=== PATIENT | female | born 1975 | race Caucasian/White ===

== ENCOUNTER 2025-07-18 06:45 | Observation (INO) | payer OTHER, SELFPAY ==
[2025-07-18] VITALS (7 sets, daily range): BP systolic 101–159; BP diastolic 59–105; PULSE 58–91; RESP 15–19; TEMP 35.9–36.7; O2SAT 99–100; BMI 24.3
--- NOTE | ~2025-07-18 | US_ITS ---
ULTRASOUND ABDOMEN LIMITED (RIGHT UPPER QUADRANT) Clinical History: ruq pain Comparison: None Technique: Right upper quadrant sonography Findings: Liver: Normal size. Normal echotexture. No intrahepatic biliary ductal dilatation. Normal hepatopedal flow main portal vein. Common Duct: Normal caliber. 3 mm. Gallbladder: Stones. No wall thickening. No pericholecystic fluid. Pancreas: Unremarkable. Right kidney: 10 mm simple cyst. Retrohepatic IVC: Unremarkable. IMPRESSION: 1. Gallstones. No evidence of cholecystitis. If clinical ambiguity, recommend HIDA scan. Reviewed, dictated and finalized at location [facility]
[2025-07-18 07:29] LABS: Hematocrit 35.2 % (37.0-47.0); Hemoglobin 11.4 g/dL (12.0-15.0); Immature Granulocyte Percent A 0.4 % (0-0.5); Lymphocytes Absolute Auto 1.63 K/mm3 (0.9-3.2); Mean Corpuscular HGB Conc 32.4 g/dl (32-36); Mean Corpuscular Hemoglobin 26.8 pg (26-34); Mean Corpuscular Volume 82.8 fl (80-100); Nucleated Red Blood Cells Absolute Auto 0.000 K/mm3 (0.0-0.012); Nucleated Red Blood Cells Perc 0.0 % (0.0-0.2); Platelet Count Result 289 k/mm3 (150-375); Red Blood Count 4.25 M/mm3 (4.2-5.4); White Blood Count 5.6 K/mm3 (4.5-10.0)
--- OUTSIDE RECORDS SUMMARY | 2025-07-18 07:31 | XMS_ITS | Clinical Summary ---
Author Organization [facility] Address [address] [place] [address] Care Team Providers Care Commercial Litigation Attorney Name Role Phone Shoshana Parker ROD AND TUBE STRAIGHTENER-CLIENT RELATIONS ASSOCIATE Primary Care Provider [phone] Source Comments [facility],non-owned Affiliates and Associated Physician Practices is amultiple site organization consisting of ambulatory clinics and hospital sitesin [place], [place], [place] and [place]. This disclosure is being madepursuant to the Care Everywhere program and may not contain all information available regarding this patient. Last updated 18.[facility] Allergies No known active allergies Medications * Be aware that medications may not be up to date on this document. Alwaysverify current medications with the patient. sucralfate (CARAFATE) 1 GM tablet Take 1 g by mouth 4 times daily - before meals & nightly Active pantoprazole EC (PROTONIX) 40 MG tablet Take 40 mg by mouth once daily Active hyoscyamine (LEVSIN) 0.125 MG tablet Take 1 tablet by mouth every 4 hours as needed for Spasms (abdominal pain) 30 tablet 10/08/2017 Active Active Problems Problem Noted Date Diagnosed Date Attention deficit hyperactivity disorder (ADHD) 03/31/2010 Screening for condition 10/16/2008 Overview (05/06/2015): Adult Abstraction Problem List Screening Pap: been awhile Family History Medical History Relation Name Comments Hypercholesterolemia Father Hypertension Father Hypercholesterolemia Mother Hypertension Mother Cancer - Breast Neg Hx Cancer - Ovarian Neg Hx Diabetes Neg Hx Relation Name Status Comments Brother 1 Alive Brother 2 Alive Brother 3 Alive Father Alive Mother Alive Sister 1 Alive Sister 2 Alive Sister 3 Alive Social History Tobacco Use Types Packs/Day Years Used Date Smoking Tobacco: Never Alcohol Use Standard Drinks/Week Comments Yes 0 (1 standard drink = 0.6 oz pur e alcohol) occ Comments No Sex and Gender Information Value Date Recorded Sex Assigned at Not on file Legal Sex Female 7:19 AM WASTEWATER ANALYST Gender Identity Not on file Sexual Orientation Not on file Occupation Industry Job Start Date Job End 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[employer] Not on file Not on file No t on file Last Filed Vital Signs Vital Sign Reading Time Taken Comments Blood Pressure 142/72 10/08/2017 2:57 PM WASTEWATER ANALYST Pulse 76 10/08/2017 11:55 AM WASTEWATER ANALYST Temperature 36.8 C (98.2 F) 10/08/2017 11:55 AM WASTEWATER ANALYST Respiratory Rate 16 10/08/2017 11:55 AM WASTEWATER ANALYST Oxygen Saturation 100% 10/08/2017 2:57 PM WASTEWATER ANALYST Inhaled Oxygen Concentration - - Weight 76.2 kg (168 lb) 11/30/2023 8:17 AM CDT Height 177.8 cm (5' 10) 11/30/2023 8:17 AM CDT Body Mass Index 24.11 11/30/2023 8:17 AM CDT Plan of Treatment Health Maintenance Due Date Last Done Comments COLOGUARD (AGES 45-75) - COLON CA SCREENING 1976 COLON MONITORING 1976 COLONOSCOPY - COLON CA SCREENING 1976 CT COLONOGRAPHY - COLON CA SCREENING 1976 Colorectal Cancer Screening 1976 FIT - COLON CA SCREENING 1976 FLEX SIG - COLON CA SCREENING 1976 HIV SCREENING 1991 HEPATITIS C SCREENING 09/10/1994 DTAP/TDAP/TD VACCINES (1 - Tdap) 1995 HEPATITIS B VACCINE (1 of 3 - 19+ 3-dose series) 1995 PAP with HPV 2006 Cervical Cancer Screening 07/17/2012 PAP SMEAR 07/17/2012 07/17/2009 LIPID TESTING 10/29/2013 10/29/2008 DEPRESSION SCREENING 08/06/2024 COVID-19 VACCINE (3 - season) 2025 10/07/2020, 09/16/2020 INFLUENZA VACCINE (#1) 2025 , 06/19/2016, 06/19/2015 MAMMOGRAM 11/29/2025 11/30/2023, 12/04, 12/15/2021, Additional history exists ZOSTER VACCINE (1 of 2) 2026 HIB VACCINE Aged Out No longer eligi ble based on patient's age to complete this topic HPV VACCINE Aged Out No longer eligi ble based on patient's age to complete this topic MENINGOCOCCAL (Group B) VACCINE SHARED DECISION-MAKING Aged Out No longer eligible based on patient's age to complete this topic MENINGOCOCCAL GROUPS A/C/Y/W VACCINE Aged Out No longer eligible based on patient's age to complete this topic PNEUMOCOCCAL VACCINE Aged Out No long er eligible based on patient's age to complete this topic Procedures Procedure Name Priority Date/Time Associated Diagnosis Comments MAMMO BILAT SCREENING W CALEB Routine 11/30/2023 8:31 AM CDT Encounter for screening mammogram for malignant neoplasm of breast LIPID PROFILE Routine 10/29/2008 10:21 AM CDT Lymphadenopathy from Last 3 Months or Most Recently Relevant to Health Maintenance Results * MAMMO BILAT SCREENING W CALEB (11/30/2023 8:31 AM CDT) Anatomical Region Laterality Modality Breast Bilateral Mammography 11/30/2023 11:5 0 AM CDT Impressions 11/30/2023 11:54 AM CDT : No mammographic evidence of malignancy in either breast. ASSESSMENT: BIRADS Category 2: Benign finding(s). RECOMMENDATION: Bilateral screening mammogram in one year. Thank you for allowing us to participate in the care of your patient. [facility] utilizes [employer] as a reminder system to notify patients of their next recommended mammogram. > Interpreting Provider: Radha Vieira MD on 11/30/2023 11:54 AM Narrative 11/30/2023 11:54 AM CDT EXAMINATION: Digital screening mammogram. Low-dose full-field digital breast tomosynthesis examination was performed with synthetic 2D images. Computer assisted detection was utilized. DATE: 11/30/2023 8:31 AM PRIOR: 2021 outside images BREAST PARENCHYMAL DENSITY: The breasts are heterogeneously dense, which may obscure small masses. FINDINGS: No suspicious masses, areas of architectural distortion or microcalcifications are evident on synthetic 2D mammogram or tomosynthesis images. Patient is status post left breast ultrasound-guided biopsy with benign pathology in 2021. Shoshana Parker ROD AND TUBE STRAIGHTENER-CLIENT RELATIONS ASSOCIATE MAMMO ORDERABLES Final Res ult * LIPID PROFILE (10/29/2008 10:21 AM CDT) Cholesterol 144 100 - 199 mg/dL [facility] ACCOUNT BILL Triglycerides 57 0 - 149 mg/dL [facility] ACCOUNT BILL HDL Cholesterol 64 >39 mg/dL [facility] ACCOUNT BILL Comment: According to ATP-III Guidelines, HDL-C >59 mg/dL is considered a negative risk factor for CHD. VLDL Calculated 11 5 - 40 mg/dL [facility] ACCOUNT BILL LDL Calculated 69 0 - 99 mg/dL [facility] ACCOUNT BILL BLOOD SPECIMEN / Unknown 10/29/2008 10:21 AM CDT 10/29/2008 5:00 PM CDT Narrative Resulting Agency Comment [facility] [address] [id number] Richard Barone MD LAB - CHEMISTRY ORDERABLES Final Result [facility] ACCOUNT BILL [address] [place] [address] from Last 3 Months or Most Recently Relevant to Health Maintenance Insurance [facility] * Guarantor: JYOTSNA MARTIN Account Type Relation to Patient Date of Phone Billing Address Personal/Family 1975 [address] [address] Care Teams Commercial Litigation Attorney Relationship Specialty Start Date End Date Shoshana Parker APRN-CLARA PCP - General Nurse Practitioner Family 11/30/23
--- OUTSIDE RECORDS SUMMARY | 2025-07-18 07:31 | XMS_ITS | Clinical Summary ---
Author Organization [facility] Address [address] [place] [address] Care Team Providers Care Manager Cash Name Role Phone No, Pcp PENSIONHOLDER INFORMATION CLERK Primary Care Provider Unavailabl e Allergies No known active allergies Medications doxycycline (VIBRAMYCIN) 100 MG capsule 100 mg 2 (two) times a day. Active Immunizations Immunization Administration Dates Next Due Afluria TIV Prefilled Syringe (9+ Years) 015 Fluarix Quadrivalent Prefilled Syringe 6 Social History Tobacco Use Types Packs/Day Years Used Date Smoking Tobacco: Never Comments Unknown Sex and Gender Information Value Date Recorded Sex Assigned at Not on file Legal Sex Female 1:44 PM EST Gender Identity Not on file Sexual Orientation Not on file Last Filed Vital Signs Vital Sign Reading Time Taken Comments Blood Pressure 110/68 06/19/2016 12:18 PM CLIENT RETENTION SPECIALIST Pulse 67 06/19/2016 12:18 PM CLIENT RETENTION SPECIALIST Temperature 36.6 C (97.9 F) 06/19/2016 12:18 PM CLIENT RETENTION SPECIALIST Respiratory Rate 18 06/19/2016 12:18 PM CLIENT RETENTION SPECIALIST Oxygen Saturation 98% 06/19/2016 12:18 PM CLIENT RETENTION SPECIALIST Inhaled Oxygen Concentration - - Weight 73.5 kg (162 lb) 06/19/2016 12:18 PM CLIENT RETENTION SPECIALIST Height 175.9 cm (5' 9.25) 06/19/2016 12:[address] Body Mass Index 23.75 06/19/2016 12:18 PM CLIENT RETENTION SPECIALIST Plan of Treatment Not on file Medical Devices Not on file Care Teams Manager Cash Relationship Specialty Start Date End Date No, Pcp, PENSIONHOLDER INFORMATION CLERK N/A Do not use PCP - General Family Medicine 07/22/20
--- OUTSIDE RECORDS SUMMARY | 2025-07-18 07:31 | XMS_ITS | Encounter Summary ---
Author Organization [facility] Address [address] [place] [address] Care Team Providers Care Press Box Custodian Name Role Phone Glory Mcgovern MD Primary Care Provider [phone] Reason for Visit * Reason Comments Medication Refill Encounter Details Date Type Department Care Team (Late Contact Info) Description 08/14/2019 Refill [facility] [place] [address] [place] [address] Elba Ann, [facility] [address] [place] [address] Elevated BP without diagnosis of hypertension Social History Tobacco Use Types Packs/Day Years Used Date Smoking Tobacco: Never Smokeless Tobacco: Never Alcohol Use Standard Drinks/Week Comments Yes 5 (1 standard drink = 0.6 oz pur e alcohol) occasionally Comments No Sex and Gender Information Value Date Recorded Sex Assigned at Not on file Legal Sex Female 3:51 AM SPRINKLER REPAIR TECHNICIAN Gender Identity Not on file Sexual Orientation Not on file documented as of this encounter Miscellaneous Notes * Telephone Encounter - Elmer Cha - 08/14/2019 9:21 AM CST Called patient and set appointment for her on 08/25/2019 at 8:00 am Refilled her metoprolol for onemonth only. NKLER REPAIR TECHNICIAN documented in this encounter Plan of Treatment Upcoming Encounters Date Type Department Care Team (Late st Contact Info) Description 03/12/2026 11:10 AM CDT Office Visit [facility] [address] [place] [address] [place] [address] [place] [address] documented as of this encounter Visit Diagnoses Diagnosis Elevated BP without diagnosis of hypertension documented in this encounter Care Teams Press Box Custodian Relationship Specialty [place] [address] [place] [address] PCP - General Internal Medicine 12/22/21 documented as of this encounter
--- OUTSIDE RECORDS SUMMARY | 2025-07-18 07:31 | XMS_ITS | Clinical Summary ---
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 Use the 2nd tablet as needed for nausea and vomiting. 2 tablet 5 Active Additional Information Patient not taking.Reported on 07/06/2025 propranoloL (INDERAL) 10 mg tablet TAKE 1 TABLET(10 MG) BY MOUTH TWICE DAILY 180 tablet 1 5 Active polyethylene glycol (GoLYTELY) 236-22.74-6.74 -5.86 gram solution Take 4,000 mL by mouth once for 1 dose 4000 mL 5 06/18/20 25 Active Problems Problem Noted Date Diagnosed Date Gastroesophageal reflux disease 07/07/2025 Colicky right upper quadrant pain 07/07/2025 Encounter for screening colonoscopy 06/18/2025 Palpitations 06/10/2025 Assessment & Plan (06/10/2025 9:57 AM STOVE TENDER): Controlled on propranolol Mild intermittent asthma without complication Assessment & Plan (06/10/2025 9:57 AM STOVE TENDER): Screening for colon cancer 11/04/2024 Cervicalgia 04/24/2024 Assessment & Plan (04/24/2024 10:08 AM CDT): This is a new problem assessed today; X-ray of cervical spine. Depending on results, refer to physical therapy and/or pain management, Rx for Celebrex p.r.n. Left hip pain 04/24/2024 Assessment & Plan (04/24/2024 10:08 AM CDT): This is a new problem; Rx Celebrex p.r.n., x-ray of left hip. Referral to orthopedics Annual physical exam 04/24/2024 Assessment & Plan (06/10/2025 9:57 AM STOVE TENDER): Orders: CBC with auto differential; Future Comprehensive metabolic panel; Future Lipid panel; Future Thyroid Function [place]; Future Assessment & Plan (04/24/2024 10:07 AM CDT): -Recommended: Healthy diet. Avoiding junk food/fast food. -30 minutes of exercise most days of the week. Increase to 45 minutes for weight loss. Health Maintenance reviewed - recommended pneumococcal vaccine, mammogram was done externally, referral to GI for colonoscopy. -Influenza vaccine every year Recommend: - Topic Date Due Pneumococcal vaccine <65 (1 of 2 - PCV) Never done DTaP/Tdap/Td Vaccine (1 - Tdap) Never done -F/u in 1 year for Annual PE or sooner if needed Gastroesophageal reflux disease without esophagi tis 10/23/2023 Assessment & Plan (07/06/2025 1:34 PM STOVE TENDER): History of. Pain did improve a little when taking some kind of otc homeopathic gerd treatment made with charcoal. Advised she can take pepcid ac to trial if she has pain again. She is having a colonoscopy on the . She is asking about an EDG at same time. Will inquire to GI. Orders: Ambulatory referral to Gastroenterology; Future Assessment & Plan (10/23/2023 9:00 AM CDT): May continue omeprazole OTC. May also try Pepcid as an alternative. If symptoms continue or escalate again we may consider ultrasound of gallbladder HTN (hypertension), benign 02/14/2021 Overview (12/26/2021): Last Assessment & Plan: Stable and Controlled. Current medication regimen affective, continue same. Monitor routine blood work. Assessment & Plan (06/10/2025 9:57 AM STOVE TENDER): Controlled on propranolol and losartan 25mg daily Orders: CBC with auto differential; Future Comprehensive metabolic panel; Future Lipid panel; Future Thyroid Function [place]; Future Assessment & Plan (04/24/2024 10:05 AM CDT): Stable/ Improved. Blood pressure is adequately controlled on Losartan and propranolol . We will not make any medication changes today. Will have her follow-up in 6 months for continued monitoring and management Assessment & Plan (10/23/2023 8:59 AM CDT): Stable/ Improved. Blood pressure is adequately controlled on current medication. Continue losartan propranolol. We will not make any medication changes today. Will have her follow-up in 6 months with labs for continued monitoring and management Attention deficit hyperactivity disorder (ADHD) 03/31/2010 Resolved Problems Problem Noted Date Diagnosed Date Resolved Date Shoulder injury related to v accine administration (SIRVA) 05/12/2021 10/23/2023 History of COVID-19 02/14/2021 03/22/20 Overview (12/26/2021): June 2020 Last Assessment & Plan: Improving. Will monitor symptoms. Encounters Date Type Department Care Team Description 07/14/2025 11:45 AM STOVE TENDER - 07/14/2025 11:59 PM STOVE TENDER Hospital Encounter [facility] - Imaging [address] [place] [address] Colicky right upper quadrant pain Discharge Disposition: Discharge to home or self care 07/14/2025 Results Follow-Up [facility] Primary Care at [address] [phone] Shoshana Parker NP [facility] 07/07/2025 Orders Only [facility] Gastroenterology at [address] [place] [phone] Richy Stevenson MD Gastroesophageal reflux disease, unspecified whether esophagitis present (Primary Dx); Colicky right upper quadrant pain 07/07/2025 Orders Only [facility] Gastroenterology at [address] [place] [phone] Richy Stevenson MD 07/06/2025 12:30 PM STOVE TENDER Office Visit [facility] Primary Care at [address] [phone] Shoshana Parker NP Gastroesophageal reflux disease without esophagitis (Primary Dx); Colicky right upper quadrant pain 07/06/2025 Nurse Triage [facility] Primary Care at [address] [phone] Shoshana Parker NP 06/18/2025 Orders Only [facility] Gastroenterology at [address] [place] [phone] Richy Stevenson MD Nausea and vomiting, unspecified vomiting type (Primary Dx); Encounter for screening colonoscopy 06/17/2025 Telephone [facility] Minimally Invasive Surgery [address] [place] [address] Health 7th Floor [address] [place] [address] Rupa Woodson, Rizwan New Referral 06/11/2025 Results Follow-Up [facility] Sleep Medicine at [address] [place] [address] Shoshana Parker NP CBC with auto differential, Comprehensive metabolic panel, Lipid panel, Additional followed-up results: 7 06/10/2025 9:15 AM STOVE TENDER Lab [address] [address] Annual physical exam; HTN (hypertension), benign; Lipid screening; Need for hepatitis B screening test; Need for hepatitis C screening test 06/10/2025 8:30 AM STOVE TENDER Office Visit [facility] Primary Care at [address] [phone] Shoshana Parker NP Encounter for screening colonoscopy (Primary Dx); Annual physical exam; HTN (hypertension), benign; Lipid screening; Need for hepatitis C screening test; Need for hepatitis B screening test; Family history of cancer; Palpitations; Mild intermittent asthma without complication from Last 3 Months Immunizations Immunization Administration Dates Next Due HPV9 04/21/2021 Influenza, Quadrivalent, Spl it, Preservative Free, Intramuscular 04/21/2021,06/19/2016 Influenza, Trivalent, Preser vative Free, Intramuscular 06/10/2025,06/19/2015 Influenza, Unspecified 04/24/2024(Deferr ed: Patient Refused),10/23/2023(Deferred: Patient Refused),08/06/2022(Deferred: Patient Refused) Pfizer SARS-CoV-2 Monovalent Vaccination (12+ Yrs) PURPLE 10/07/2020,09/16/2020 Tdap 06/10/2025,(Deferred: Patient Refused) Surgical History Surgery Date Site/Laterality Comments BREAST BIOPSY BREAST BIOPSY 12/15/2021 Left APPENDECTOMY 08/06/1985 - 08/05/1986 Medical History Medical History Date Comments Hypertension Shoulder injury related to vaccine administratio n (SIRVA) 05/12/2021 Osteoarthritis Arrhythmia Asthma Family History Medical History Relation Name Comments Cancer Brother 1 Renzo Colon cancer Brother 1 Renzo Hypertension Brother 1 Renzo Hypertension Brother 2 Mark Colon cancer Father Scott Hypertension Father Scott Lung cancer Maternal Grandmother Hypertension Mother Shelbie Brain cancer Paternal Grandfather Relation Name Status Comments Brother 1 Renzo Brother 2 Mark Father Scott Maternal Grandmother Mother Shelbie Paternal Grandfather Social History Tobacco Use Types Packs/Day Years Used Date Smoking Tobacco: Never Smokeless Tobacco: Never Tobacco Cessation:Counseling Given: Not Answered Alcohol Use Standard Drinks/Week Comments Yes 2 (1 standard drink = 0.6 oz pur e alcohol) PHQ-2 Answer Date Recorded PHQ-2 Total Score (If total score is 3 or more points, staff should administer the PHQ-9) 0 07/06/2025 AUDIT-C Answer Date Recorded Q1: How often do you have a drink containing alc ohol? 2-3 times a week 07/10/2025 Q2: How many drinks containi ng alcohol do you have on a typical day when you are drinking? 1 or 2 07/10/2025 Q3: How often do you have si x or more drinks on one occasion? Never 07/10/2025 Comments No Sex and Gender Information Value Date Recorded Sex Assigned at Not on file Legal Sex Female 11:40 PM STOVE TENDER Gender Identity Not on file Sexual Orientation Not on file Obstetrics History Para Term AB IAB SAB Ectopic Multiple Livin g Live Births 0 0 0 0 0 0 0 0 0 0 0 Last Filed Vital Signs Vital Sign Reading Time Taken Comments Blood Pressure 134/88 07/06/2025 12:41 PM STOVE TENDER Pulse 73 07/06/2025 12:41 PM STOVE TENDER Temperature 36.5 C (97.7 F) 07/06/2025 12:41 PM STOVE TENDER Respiratory Rate 16 07/06/2025 12:41 PM STOVE TENDER Oxygen Saturation 98% 07/06/2025 12:41 PM STOVE TENDER Inhaled Oxygen Concentration - - Weight 76.3 kg (168 lb 3.2 oz) 07/06/2025 12:41 PM STOVE TENDER Height 177.8 cm (5' 10) 07/06/2025 12:41 PM STOVE TENDER Body Mass Index 24.13 07/06/2025 12:41 PM STOVE TENDER Plan of Treatment Upcoming Encounters Date Type Department Care Team (Late st Contact Info) Description 07/24/2025 8:30 AM STOVE TENDER [place] [address] Richy Stevenson MD [address] [place] [address] 07/24/2025 8:30 AM STOVE TENDER Anesthesia Event [phone] [place] [address] Leon Lucas, EDMAR [address] [place] [address] 07/24/2025 8:30 AM STOVE TENDER - 07/24/2025 9:00 AM STOVE TENDER Surgery [address] [address] Richy Stevenson MD [address] [place] [address] [address] [place] [address] COLONOSCOPY Scheduled Procedures Name Priority Associated Diagnoses Date/Ti me COLONOSCOPY Encounter for screening colonoscopy 07/24/2025 8:30 AM STOVE TENDER Health Maintenance Due Date Last Done Comments Cervical Cancer Screening 1976 Colon Cancer Screening-Colonoscopy 1976 Pneumococcal vaccine <65 (1 of 2 - PCV) 1995 Covid-19 Vaccine (2024-2 6 season) 2025 10/07/2020, 09/16/2020 Breast Cancer Screening-Mammogram 04/08/2026 04/08/2025, 04/08/2025, 11/30/2023, Additional history exists Regular Well Visit/Exam 18-64 06/10/2026 06/10/2025, 04/24/2024 Depression Screening 07/06/2026 07/06/2025, 06/10/2025, 04/24/2024, Additional history exists DTaP/Tdap/Td Vaccine (2 - Td or Tdap) 06/10/2035 06/10/2025 Hepatitis B Screening Completed 06/10/2025 Hepatitis C Screening Completed 06/10/2025 Influenza Vaccine Completed 06/10/2025, , 06/19/2016, Additional history exists Procedures Procedure Name Priority Date/Time Associated Diagnosis Comments US RUQ Schedule Routine, Read Routine (OP Routine) 07/14/2025 12:10 PM STOVE TENDER Colicky right upper quadrant pain EGFR Routine 06/10/2025 9:22 AM STOVE TENDER Annual physical exam HTN (hypertension), benign DIFFERENTIAL AUTO Routine 06/10/2025 9:2 2 AM STOVE TENDER Annual physical exam HTN (hypertension), benign THYROID FUNCTION CASCADE Routine 06/10/2025 9:22 AM STOVE TENDER Annual physical exam HTN (hypertension), benign LIPID PANEL Routine 06/10/2025 9:22 AM STOVE TENDER Annual physical exam HTN (hypertension), benign Lipid screening COMPREHENSIVE METABOLIC PANEL Routine 06/10/2025 9:22 AM STOVE TENDER Annual physical exam HTN (hypertension), benign CBC WITH AUTO DIFFERENTIAL Routine 06/10/2025 9:22 AM STOVE TENDER Annual physical exam HTN (hypertension), benign HEPATITIS C ANTIBODY Routine 06/10/2025 9:22 AM STOVE TENDER Need for hepatitis C screening test HEPATITIS B SURFACE ANTIBODY (IMMUNE STATUS) Routine 06/10/2025 9:22 AM STOVE TENDER Need for hepatitis B screening test HEPATITIS B CORE ANTIBODY, TOTAL Routine 06/10/2025 9:22 AM STOVE TENDER Need for hepatitis B screening test HEPATITIS B SURFACE ANTIGEN Routine 06/10/2025 9:22 AM STOVE TENDER Need for hepatitis B screening test SCREENING MAMMOGRAM BILATERAL W BENNY Schedule Routine, Read Routine (OP Routine) 12/06/2021 3:51 PM CDT Screening mammogram, encounter for from Last 3 Months or Most Recently Relevant to Health Maintenance Results * US RUQ (07/14/2025 12:10 PM STOVE TENDER) Anatomical Region Laterality Modality Abdomen N/A Ultrasound 07/14/2025 1:27 PM STOVE TENDER Impressions 07/14/2025 1:27 PM STOVE TENDER 1. Cholelithiasis. The gallbladder is contracted the time of this examination. 2. Otherwise negative right upper quadrant sonogram. Electronically signed by: Salvatore Diaz M.D. Narrative 07/14/2025 1:27 PM STOVE TENDER EXAM: US RUQ CLINICAL HISTORY: Abdominal pain. Right upper quadrant pain. COMPARISON: None available. FINDINGS: Liver: The liver is unremarkable in appearance. Gallbladder: The gallbladder is contracted at the time of this examination. The gallbladder is filled with small stones and echogenic debris. There is no evidence of gallbladder wall thickening. There is no sonographic Fonseca sign. Bile ducts: There is no evidence of biliary ductal dilatation. The common bile duct measures 4 mm in greatest diameter. Pancreas: The visualized portions of the pancreas are unremarkable. Portal vein and inferior vena cava: Patent and within normal limits. Procedure Note Salvatore Diaz MD - 07/14/2025 EXAM: US RUQ CLINICAL HISTORY: Abdominal pain. Right upper quadrant pain. COMPARISON: None available. FINDINGS: Liver: The liver is unremarkable in appearance. Gallbladder: The gallbladder is contracted at the time of this examination. The gallbladder is filled with small stones and echogenic debris. There is no evidence of gallbladder wall thickening. There is no sonographic Fonseca sign. Bile ducts: There is no evidence of biliary ductal dilatation. The common bile duct measures 4 mm in greatest diameter. Pancreas: The visualized portions of the pancreas are unremarkable. Portal vein and inferior vena cava: Patent and within normal limits. IMPRESSION: 1. Cholelithiasis. The gallbladder is contracted the time of this examination. 2. Otherwise negative right upper quadrant sonogram. Electronically signed by: Salvatore Diaz M.D. Shoshana Parker NP IM US PROCEDURES Final Resul t * eGFR (06/10/2025 9:22 AM STOVE TENDER) eGFR >90 >=60 mL/min/1. 73 m2 Comment: Interpretive Data Reference Interval Normal >/= 90 mL/min/1.73m2 Mildly decreased* 60 - 89 mL/min/1.73m2 Mildly to moderately decreased 45 - 59 mL/min/1.73m2 Moderately to severely decreased 30 - 44 mL/min/1.73m2 Severely decreased 15 - 29 mL/min/1.73m2 Kidney Failure < 15 mL/min/1.73m2 *Relative to young adult level Estimated glomerular filtration rate is determined by the 2020 CKD-EPI equation recommended by the National Kidney Foundation (A Unifying Approach to GFR Estimation: Recommendations of the NKF-ASK Task Force on Reassessing the Inclusion of Race in Diagnosing Kidney Disease, JASN 2020). The CKD-EPI equation should not be used for patients with unstable renal function and has not been validated in children and those over 70. Current interpretive data was last reviewed 2021. Blood 06/10/2025 9:22 AM STOVE TENDER 06/10/2025 10:41 AM STOVE TENDER Shoshana Parker NP LAB BLOOD ORDERABLES Final Re sult [facility] [address] [facility] [place] [address] * Differential, auto (06/10/2025 9:22 AM STOVE TENDER) Neutrophil abs 4.36 1.50 - 6.50 K/cumm Imm gran abs 0.01 0.00 - 0.10 K/cumm [facility] Lymphocyte abs 2.27 0.80 - 3.30 K/cumm [facility] Monocyte abs 0.63 0.20 - 0.80 K/cumm [facility] Eosinophil abs 0.05 0.00 - 0.50 K/cumm [facility] Basophil abs 0.02 0.00 - 0.10 K/cumm [facility] Neutrophil pct 59.4 % [facility] Comment: Interpretive Data Percent cell count reference ranges are not reported, since discordance with absolute values may lead to misinterpretation of CBC data. Current Interpretive Data was last revised on 2017. Imm gran pct 0.1 % [facility] Comment: Interpretive Data Percent cell count reference ranges are not reported, since discordance with absolute values may lead to misinterpretation of CBC data. Current Interpretive Data was last revised on 2017. Lymphocyte pct 30.9 % [facility] Comment: Interpretive Data Percent cell count reference ranges are not reported, since discordance with absolute values may lead to misinterpretation of CBC data. Current Interpretive Data was last revised on 2017. Monocyte pct 8.6 % [facility] Comment: Interpretive Data Percent cell count reference ranges are not reported, since discordance with absolute values may lead to misinterpretation of CBC data. Current Interpretive Data was last revised on 2017. Eosinophil pct 0.7 % [facility] Comment: Interpretive Data Percent cell count reference ranges are not reported, since discordance with absolute values may lead to misinterpretation of CBC data. Current Interpretive Data was last revised on 2017. Basophil pct 0.3 % [facility] Comment: Interpretive Data Percent cell count reference ranges are not reported, since discordance with absolute values may lead to misinterpretation of CBC data. Current Interpretive Data was last revised on 2017. Blood 06/10/2025 9:22 AM STOVE TENDER 06/10/2025 10:43 AM STOVE TENDER Shoshana Parker NP LAB BLOOD ORDERABLES Final Re sult Performing Organization Address [facility] de Phone Number [address] [place] [address] * Thyroid Function [place] (06/10/2025 9:22 AM STOVE TENDER) Pathologist [facility] TSH 2.05 0.30 - 4.20 mcIUnit/mL Blood 06/10/2025 9:22 AM STOVE TENDER 06/10/2025 10:41 AM STOVE TENDER Shoshana Parker NP LAB BLOOD ORDERABLES Final Re sult Performing Organization Address [facility] de Phone Number [address] [address] * CBC with auto differential (06/10/2025 9:22 AM STOVE TENDER) Pathologist [facility] WBC 7.34 3.80 - 9.90 K/cumm Hgb 12.2 11.9 - 15.5 g/dL [facility] Hct 37.5 35.6 - 45.5 % [facility] Plt 284 150 - 400 K/cumm [facility] MPV 10.2 9.1 - 12.3 fL [facility] RBC 4.46 3.90 - 5.20 M/cumm [facility] MCV 84.1 81.3 - 96.4 fL [facility] MCH 27.4 27.1 - 33.3 pg [facility] MCHC 32.5 32.3 - 35.7 g/dL [facility] RDW CV 13.6 11.1 - 14.9 % [facility] RDW SD 41.8 35.7 - 48.1 fL [facility] NRBC abs 0.00 0.00 - 0.01 K/cumm [facility] Blood 06/10/2025 9:22 AM STOVE TENDER 06/10/2025 10:43 AM STOVE TENDER Shoshana Parker NP LAB BLOOD ORDERABLES Final Re sult Performing Organization Address [facility] Co de Phone Number [address] [place] [address] * Hepatitis C antibody Blood (06/10/2025 9:22 AM STOVE TENDER) Hep C Ab Nonreactive Nonreactive Comment: Antibodies to HCV not detected. Does NOT exclude the possibility of recent exposure to HCV. Current interpretive data was last revised on 22 Interpretive Data Nonreactive: Antibodies to HCV not detected. Does NOT exclude the possibility of recent exposure to HCV. Equivocal: Equivocal for HCV antibodies. Supplemental molecular testing will be automatically performed to determine infection status in accordance with current CDC screening recommendations. Reactive: Positive for HCV antibodies. This may represent current or past HCV infection. Supplemental molecular testing will be automatically performed to determine current infection status in accordance with current CDC screening recommendations. Interpretive data was last revised on 2019. Blood 06/10/2025 9:22 AM STOVE TENDER 06/10/2025 10:41 AM STOVE TENDER Shoshana Parker NP LAB MICROBIOLOGY - GENERAL OR DERABLES Final Result Performing Organization Address [facility] Co de Phone Number [address] [place] [address] * Hepatitis B core antibody, total Blood (06/10/2025 9:22 AM STOVE TENDER) Pathologist [facility] Hep B core IgG/IgM Nonreactive Nonreactive Comment:Testing performed by : [facility], [address] [facility], [place]., [address] Blood 06/10/2025 9:22 AM STOVE TENDER 06/10/2025 5:40 PM STOVE TENDER us Shoshana Parker NP LAB MICROBIOLOGY - GENERAL OR DERABLES Final Result Performing Organization Address [facility] de Phone Number [address] [place] [address] * Hepatitis B surface antibody (immune status) Blood (06/10/2025 9:22 AM STOVE TENDER) [facility] HBsAb (immune status) Nonreactive Comment: Interpretive Data Nonreactive: This result is consistent with a lack of immunity to Hepatitis B Virus when used in the setting of routine screening. Equivocal: The immune status of the individual should be further assessed, if appropriate, after consideration of clinical status, risk factors, and additional diagnostic information. Reactive: This result is consistent with immunity to Hepatitis B Virus when used in the setting of routine screening. Current interpretive data was last revised on 19. Blood 06/10/2025 9:22 AM STOVE TENDER 06/10/2025 10:41 AM STOVE TENDER us Shoshana Parker NP LAB MICROBIOLOGY - GENERAL OR DERABLES Final Result Performing Organization Address [facility] de Phone Number [address] [place] [address] * Hepatitis B Surface Antigen Blood (06/10/2025 9:22 AM STOVE TENDER) Pathologist [facility] HepBsAg Nonreactive Nonreactive Blood 06/10/2025 9:22 AM STOVE TENDER 06/10/2025 10:41 AM STOVE TENDER us Shoshana Parker NP LAB MICROBIOLOGY - GENERAL OR DERABLES Final Result [facility] [address] [facility] [place] [address] * Lipid panel (06/10/2025 9:22 AM STOVE TENDER) Cholesterol 163 30 - 199 mg/dL Comment: Interpretive Data Ages < or = 19 years Acceptable: <170 mg/dL Borderline high: 170-199 mg/dL High: >or= 200 mg/dL Ages > or = 20 years Desirable: <200 mg/dL Borderline high: 200-239 mg/dL High: >or= 240 mg/dL Literature References: 1. Expert Panel on Integrated Guidelines for Cardiovascular Health and Risk Reduction in Children and Adolescents. Pediatrics 2011;128:S213 2. NCEP Expert Panel. Circulation 2004;110:227 Current Interpretive Data was last revised on 2018. Triglycerides 86 <=149 mg/dL [facility] Comment: Interpretive Data Ages < or = 9 years Acceptable: <75 mg/dL Borderline high: 75-99 mg/dL High: >or= 100 mg/dL Ages 10 to 20 years Acceptable: <90 mg/dL Borderline high: 90-129 mg/dL High: >or= 130 mg/dL Ages > or = 20 years Desirable: <150 mg/dL Borderline high: 150-199 mg/dL High: 200-499 mg/dL Very high: >or= 499 mg/dL Literature References: 1. Expert Panel on Integrated Guidelines for Cardiovascular Health and Risk Reduction in Children and Adolescents. Pediatrics 2011;128:S213 2. NCEP Expert Panel. Circulation 2004;110:227 Current Interpretive Data was last revised on 2018. HDL 66 >=40 mg/dL [facility] Comment: Interpretive Data Ages < or = 19 years Acceptable: >45 mg/dL Borderline low: 40-45 mg/dL Low: <40 mg/dL Ages > or = 20 years Desirable: >or= 60 mg/dL Low: <40 mg/dL Literature References: 1. Expert Panel on Integrated Guidelines for Cardiovascular Health and Risk Reduction in Children and Adolescents. Pediatrics 2011;128:S213 2. NCEP Expert Panel. Circulation 2004;110:227 Current Interpretive Data was last revised on 2018. LDL, calculated 81 <=129 mg/dL [facility] ORTEGA Comment: Interpretive Data Ages < or = 19 years Acceptable: <110 mg/dL Borderline high: 110-129 mg/dL High: >or= 130 mg/dL Ages > or = 20 years Optimal: <100 mg/dL Near optimal: 100-129 mg/dL Borderline high: 130-159 mg/dL High: >160 mg/dL Calculated using the Konrad LDL-C estimating equation. This equation was implemented on 2024. Prior to this date LDL-C was estimated using the Friedewald equation. Literature References: 1. Expert Panel on Integrated Guidelines for Cardiovascular Health and Risk Reduction in Children and Adolescents. Pediatrics 2011;128:S213 2. NCEP Expert Panel. Circulation 2004;110:227 3. Konrad Nguyễn et al. SUMAN Cardiol. 2020 December 04;5(5):540-548. doi: [email or web address] Current Interpretive Data was last revised on 2024. Non-HDL Cholesterol 97 mg/dL [facility] ORTEGA Comment: Interpretive Data Ages < or = 19 years Acceptable: <120 mg/dL Borderline high: 120-144 mg/dL High: >145 mg/dL Ages > or = 20 years When triglycerides are >200 mg/dL, Non-HDL cholesterol is a secondary target of therapy with treatment goals that are 30 mg/dL greater than the LDL cholesterol target. Literature References: 1. Expert Panel on Integrated Guidelines for Cardiovascular Health and Risk Reduction in Children and Adolescents. Pediatrics 2011;128:S213 2. NCEP Expert Panel. Circulation 2004;110:227 Current Interpretive Data was last revised on 2018. Chol/HDL ratio 2 [facility] Blood 06/10/2025 9:22 AM STOVE TENDER 06/10/2025 10:41 AM STOVE TENDER us Shoshana Parker NP LAB BLOOD ORDERABLES Final Re sult [facility] [address] [facility] [place] [address] * Comprehensive metabolic panel (06/10/2025 9:22 AM STOVE TENDER) Sodium 136 135 - 145 mmol/L Potassium, pl 4.4 3.3 - 4.9 mmol/L [facility] Chloride 104 97 - 110 mmol/L [facility] CO2 22 22 - 32 mmol/L [facility] Anion gap 10 2 - 15 mmol/L [facility] BUN 9 6 - 25 mg/dL [facility] Creatinine 0.76 0.60 - 1.10 mg/dL [facility] Glucose 93 70 - 199 mg/dL [facility] Comment: Interpretive Data Fasting glucose >/= 126 mg/dl is diagnostic for diabetes. Fasting is defined as no caloric intake for at least 8 hours. Fasting glucose between 100 mg/dl to 125 mg/dl is diagnostic of prediabetes. In a patient with classic symptoms of hyperglycemia or hyperglycemic crisis, a random glucose >/= 200 mg/dl is diagnostic for diabetes. In the absence of unequivocal hyperglycemia, results should be confirmed by repeat testing. The classification and Diagnosis of Diabetes Diabetes Care 202; 46: S19-S40. Current interpretive data was last revised 2022. Calcium 9.3 8.5 - 10.3 mg/dL [facility] Bilirubin, total 0.4 0.1 - 1.2 mg/dL [facility] Protein, pl 6.9 6.5 - 8.5 g/dL [facility] Albumin 4.3 3.5 - 5.0 g/dL [facility] Alk phos 56 40 - 130 Units/L [facility] ALT 9 7 - 45 Units/L [facility] AST 16 10 - 45 Units/L [facility] Blood 06/10/2025 9:22 AM STOVE TENDER 06/10/2025 10:41 AM STOVE TENDER Shoshana Parker NP LAB BLOOD ORDERABLES Final Re sult [facility] [address] [facility] [place] [address] * (ABNORMAL) Screening Mammogram Bilateral W Benny (12/06/2021 3:51 PM CDT) Anatomical Region Laterality Modality Breast Bilateral Mammography Narrative 12/07/2021 1:18 PM CDT Examination: Screening Mammogram Bilateral W Benny: 12/06/21 Clinical: Screening mammogram, encounter for. Prior Study Comparisons: None. This is a baseline study. Findings: Screening Mammogram Bilateral W Benny Left 1) Mass: There is an equal density, oval mass with microlobulated margins seen in the left breast at 9 o'clock in the posterior depth. This finding needs additional imaging evaluation. Right No significant masses, malignant type calcifications, skin thickening, nipple retraction, or significant lymphadenopathy is noted in this breast. The CAD review showed no significant findings. The breasts are heterogeneously dense, which may obscure small masses. The patient will be notified of results by letter. Impression: BI-RADS ATLAS category (left): 0 - Incomplete: Needs Additional Imaging Evaluation Overall Assessment: 0 - Incomplete: Needs Additional Imaging Evaluation Recommendation: - Ultrasound with possible additional views for the left breast. us Yuko Ennis MD IMG MAMMO PROCEDURES Final Res ult from Last 3 Months or Most Recently Relevant to Health Maintenance Insurance [employer] is Undercover Spy HMO/POS [employer]ETWho is Undercover Spy HMO/POS * Guarantor: [facility] Account Type Relation to Patient Date of Phone Billing Address Donor Other Care Teams Plastic Sheets Finishing Supervisor Relationship Specialty Start Date End Date Shoshana Parker NP [address] [facility] [address] [place] [address] PCP - General Family Medicine 01/15/25
--- OUTSIDE RECORDS SUMMARY | 2025-07-18 07:31 | XMS_ITS | Encounter Summary ---
Author Organization [facility] Address [address] [place] [address] Care Team Providers Care Drier Helper Name Role Phone Glory Mcgovern MD Primary Care Provider [phone] Encounter Details Date Type Department Care Team (Late Contact Info) Description 10/07/1998 Outpatient Historical [facility] Tavares [place] Social History Tobacco Use Types Packs/Day Years Used Date Smoking Tobacco: Never Assessed Comments Unknown Sex and Gender Information Value Date Recorded Sex Assigned at Not on file Legal Sex Female 3:51 AM INSULATION BLANKET MAKER Gender Identity Not on file Sexual Orientation Not on file documented as of this encounter Plan of Treatment Upcoming Encounters Date Type Department Care Team (Late st Contact Info) Description 03/12/2026 11:10 AM CDT Office Visit [facility] SCIENCE INSTRUCTOR [address] [place] [address] Kathya Marley MD [address] [place] [address] [address] [place] [address] documented as of this encounter Visit Diagnoses Not on filedocumented in this encounter Care Teams Drier Helper Relationship Specialty [place] [address] [place] [address] PCP - General Internal Medicine 12/22/21 documented as of this encounter
--- OUTSIDE RECORDS SUMMARY | 2025-07-18 07:31 | XMS_ITS | Encounter Summary ---
Author Organization [facility] Address [address] [place] [address] Care Team Providers Care Lithographic Artist Name Role Phone Glory Mcgovern MD Primary Care Provider [phone] Encounter Details Date Type Department Care Team (Late Contact Info) Description 04/25/1999 Outpatient Historical HIS [facility] MaldonadoTavares Social History Tobacco Use Types Packs/Day Years Used Date Smoking Tobacco: Never Assessed Comments Unknown Sex and Gender Information Value Date Recorded Sex Assigned at Not on file Legal Sex Female 3:51 AM KITCHENWHERE MAKER Gender Identity Not on file Sexual Orientation Not on file documented as of this encounter Plan of Treatment Upcoming Encounters Date Type Department Care Team (Late st Contact Info) Description 03/12/2026 11:10 AM CDT Office Visit [facility] LIAISON [address] [place] [address] Kathya Marley MD [address] [place] [address] [address] [place] [address] documented as of this encounter Visit Diagnoses Not on filedocumented in this encounter Care Teams Lithographic Artist Relationship Specialty [place] [address] [place] [address] PCP - General Internal Medicine 12/22/21 documented as of this encounter
--- OUTSIDE RECORDS SUMMARY | 2025-07-18 07:31 | XMS_ITS | Encounter Summary ---
Author Organization [facility] Address [address] [place] [address] Care Team Providers Care Alternative Education Teacher Name Role Phone Glory Mcgovern MD Primary Care Provider [phone] Encounter Details Date Type Department Care Team (Late st Contact Info) Description 10/04/1998 Outpatient Historical [facility] MaldonadoTavares Social History Tobacco Use Types Packs/Day Years Used Date Smoking Tobacco: Never Assessed Comments Unknown Sex and Gender Information Value Date Recorded Sex Assigned at Not on file Legal Sex Female 3:51 AM CITY COMPTROLLER Gender Identity Not on file Sexual Orientation Not on file documented as of this encounter Plan of Treatment Upcoming Encounters Date Type Department Care Team (Late st Contact Info) Description 03/12/2026 11:10 AM CDT Office Visit [facility] CUSTOMER EXPERIENCE SPECIALIST [address] [place] [address] Kathya Marley MD [address] [place] [address] [address] [place] [address] documented as of this encounter Visit Diagnoses Not on filedocumented in this encounter Care Teams Alternative Education Teacher Relationship Specialty [place] [address] [place] [address] PCP - General Internal Medicine 12/22/21 documented as of this encounter
--- OUTSIDE RECORDS SUMMARY | 2025-07-18 07:31 | XMS_ITS | Clinical Summary ---
Author Organization [facility] Address [address] [place] [address] Phone Care Team Providers Care Volleyball Assistant Coach Name Role Phone Glory Mcgovern MD Primary Care Provider [phone] Allergies No known active allergies Medications fluticasone propionate (FLONASE) 50 mcg/spray Pemaquid, Suspension nasal inhaler Administer 1 Pemaquid in each nostril daily. 16 Gram 1 2 Active Additional Information Patient not taking.Reported on 03/10/2025 albuterol sulfate HFA 90 mcg/actuation aerosol inhaler Take 1 Puff by inhalation every 8 hours as needed for Wheezing. 8.5 Gram 1 3 Active doxycycline hyclate (VIBRAMYCIN) 50 mg Capsule TAKE 1 CAPSULE(50 MG) BY MOUTH EVERY 12 HOURS NEEDED FOR ACNE 180 Capsule 1 3 Active Additional Information Patient not taking.Reported on 03/10/2025 propranoloL (INDERAL) 20 mg tablet TAKE 1 TABLET(20 MG) BY MOUTH DAILY 90 Tablet 3 4 Active losartan (COZAAR) 25 mg tabletIndicatio ns:HTN (hypertension), benign TAKE 1 TABLET(25 MG) BY MOUTH DAILY 30 Tablet 4 Active Active Problems Problem Noted Date Diagnosed Date Shoulder injury related to vaccine administratio n (SIRVA) 05/12/2021 HTN (hypertension), benign 02/14/2021 Assessment & Plan (02/14/2021 5:42 PM CDT): Stable and Controlled. Current medication regimen affective, continue same. Monitor routine blood work. Overweight (BMI 25.0-29.9) 02/14/2021 Assessment & Plan (02/14/2021 5:42 PM CDT): Suboptimal control. Heart healthy diet and routine physical exercise encouraged. History of COVID-19 02/14/2021 Overview (02/14/2021): June 2020 Assessment & Plan (02/14/2021 5:42 PM CDT): Improving. Will monitor symptoms. Bronchospasm 08/25/2019 Resolved Problems Problem Noted Date Diagnosed Date Resolved Date Elevated BP without diagnosis of hypertension 03/22/20 18 02/14/2021 Encounters Date Type Department Care Team Description 06/10/2025 External Device Data ST[facility] ABSTRACTION Provider, Abstract 06/03/2025 External Device Data [facility] ABSTRACTION Provider, Abstract 05/27/2025 External Device Data [facility] ABSTRACTION Provider, Abstract 05/26/2025 External Device Data [facility] ABSTRACTION Provider, Abstract 05/20/2025 Telephone [facility] Clinical Support [address] [place] [address] Brandy Rajan, RN Medical Records 04/22/2025 External Device Data [facility] ABSTRACTION Provider, Abstract 04/21/2025 External Device Data [facility] ABSTRACTION Provider, Abstract from Last 3 Months Immunizations Immunization Administration Dates Next Due (GARDASIL 9)(9-45 YRS) HUMAN PAPILLOMAVIRUS VACCINE, TYPES 6, 11, 16, 18, 31, 33, 45, 52, 58, NONAVALENT (9VHPV), 2 OR 3 DOSE, IM 04/21/2021 (Glassful)(12 YR UP) COVID-19 VACCINE - EMERGENCY USE AUTHORIZATION, MRNA, [id number](PF) 30 MCG/0.3 ML IM SUSP 10/07/2020,09/16/2020 INFLUENZA VACCINE QUADRIVALENT 6 MOS UP PF IM ,06/19/2016 Influenza Vaccine Tri Split 4+ Pf Im 06/19/2015 Family History Medical History Relation Name Comments Healthy Father D Heart Disease Father D chf Hypertension Father D Cancer Maternal Grandfather Mg Lung Cancer Maternal Grandfather Mg Cancer Maternal Grandmother Pg brain t umor Healthy Mother M Heart Disease Mother M afib Hypertension Mother M Relation Name Status Comments Father D Alive Maternal Grandfather Mg Maternal Grandmother Pg Mother M Alive Social History Tobacco Use Types Packs/Day Years Used Date Smoking Tobacco: Never Smokeless Tobacco: Never Tobacco Cessation:Counseling Given: Not Answered Alcohol Use Standard Drinks/Week Comments Yes 3 (1 standard drink = 0.6 oz pur e alcohol) occasionally Comments No Sex and Gender Information Value Date Recorded Sex Assigned at Not on file Legal Sex Female 3:51 AM PACKER DENTURE Gender Identity Not on file Sexual Orientation Not on file Last Filed Vital Signs Vital Sign Reading Time Taken Comments Blood Pressure 140/86 03/10/2025 10:04 AM CDT Pulse 55 02/09/2023 1:04 PM CDT Temperature 36.4 C (97.5 F) 12/22/2021 9:51 AM CDT Respiratory Rate 18 05/12/2021 10:54 AM CDT Oxygen Saturation 96% 12/22/2021 9:51 AM CDT Inhaled Oxygen Concentration - - Weight 73.5 kg (162 lb) 03/10/2025 10:04 AM CDT Height 177.8 cm (5' 10) 03/10/2025 10:04 AM CDT Body Mass Index 23.24 03/10/2025 10:04 AM CDT Plan of Treatment Upcoming Encounters Date Type Department Care Team (Late st Contact Info) Description 03/12/2026 11:10 AM CDT [facility] NURSERY SUPERVISOR [address] [address] [place] [address] [facility] [address] [place] [address] Health Maintenance Due Date Last Done Comments DTAP/TDAP/TD VACCINES (1 - Tdap) 1995 HEPATITIS B VACCINES (1 of 3 - 19+ 3-dose series) 1995 COLORECTAL SCREENING 2021 Colorectal Cancer Screening 2021 FIT-DNA Q 3 years 2021 FIT/FOBT Q 1 year 2021 Flex Sig/CT Colonography Q 5 years 2021 INFLUENZA VACCINE (#1) 2025 , 06/19/2016, 06/19/2015 COVID-19 Vaccine (2024-2 6 season) 2025 10/07/2020, 09/16/2020 BREAST CANCER SCREENING 04/08/2026 04/08/20 25, 11/30/2023, 11/30/2023, Additional history exists PAP SMEAR 03/10/2028 03/10/2025, 04/21/2021 CERVICAL CANCER SCREENING 03/10/2030 HPV/Cotest (21-29) 03/10/2030 03/10/2025, 04/21/2021 HPV/Cotest (30-65) 03/10/2030 03/10/2025, 04/21/2021 Preventative Visit- Commercial Completed 0 03/10/2025, 04/24/2024, 12/22/2021, Additional history exists Procedures Procedure Name Priority Date/Time Associated Diagnosis Comments MAMMO 3D CALEB SCREEN BILAT W OR WO CAD Routine 04/08/2025 3:42 PM CDT Breast cancer screening by mammogram CERV/VAG CYTO SCREEN PAP W/HPV Routine 03/10/2025 1:32 PM CDT Well woman exam with routine gynecological exam from Last 3 Months or Most Recently Relevant to Health Maintenance Results * MAMMO 3D CALEB SCREEN BILAT W OR WO CAD (04/08/2025 3:42 PM CDT) Anatomical Region Laterality Modality Breast Bilateral Mammography 04/08/2025 3:42 PM CDT Addenda Addendum by Helena Christian MD on 04/13/2025 10:26 AM CDT Addendum: Prior imaging was made available for comparison. Comparison is made to mammograms dating back to 2021. No suspicious abnormality is seen on the current mammogram. Since the prior study, there has been no significant interval change. OVERALL FINAL ASSESSMENT: BI-RADS CATEGORY 1: Negative. IMPRESSION: No mammographic evidence of malignancy. RECOMMENDATION: Annual screening mammography. Impressions 04/08/2025 4:17 PM CDT IMPRESSION: Needs comparison with priors. RECOMMENDATIONS: Comparison with priors DICTATION LOCATION: [facility] Narrative 04/08/2025 4:17 PM CDT MAMMO 3D CALEB SCREEN BILAT W OR WO CAD DATE: 04/08/2025 3:42 PM HISTORY: Routine screening. TECHNIQUE: Full-field digital craniocaudal and mediolateral oblique projections of both breasts were obtained. Low-dose full-field digital breast tomosynthesis examination was performed with 3D acquisitions. Examination is read in conjunction with computer aided detection. COMPARISON: None available. BREAST COMPOSITION: The breasts are heterogeneously dense, which may obscure small masses. FINDINGS: Needs priors for comparison. OVERALL FINAL ASSESSMENT: BI-RADS CATEGORY 0: Incomplete, obtaining previous images not available at the time of reading. us Kathya Marley MD MAMMO ORDERABLES Edited Res ult - Final * (ABNORMAL) CERV/VAG CYTO SCREEN PAP W/HPV (03/10/2025 1:32 PM CDT) CLINICAL INFORMATION [facility] Comment:None given LAST MENSTRUAL PERIOD [facility] [place] [facility] Comment:NA PREV PAP: [facility] [place] [facility] Comment:NA PREV BX: [facility] [place] [facility] Comment:NA SOURCE [facility] [place] [facility] Comment:Endocervix ADEQUACY: [facility] [place] [facility] Comment: Satisfactory for evaluation. Endocervical/transformation zone component present. GENERAL CATEGORIZATION: (A) [facility] [place] [facility] Comment:Cytology Results: Ep ithelial Cell Abnormality PAP INTERP (A) [facility] [place] [facility] Comment: Atypical Squamous Cells of Undetermined Significance (ASC-US) Endometrial cells present in a woman 45 years of age or older. COMMENT (PAP TEST) [facility] [place] [facility] Comment: This Pap test has been evaluated with the ThinPrep(R) Imaging System. Suggest clinical correlation and follow-up as clinically appropriate The clinical significance of endometrial cells should be interpreted in the context of menstrual history and reproductive status. If out of phase of cycle or after menopause, this finding may be associated with normal functioning endometrium, benign endometrium with stromal breakdown, hormonal alterations and, less commonly, endometrial neoplasia. Clinical correlation is suggested. CLEAN ROOM ASSEMBLER: Qu [facility] Comment: PCM, CT(ASCP) CT Screening Location: [place] [address] [place] [address] CLIA: [id number] Slide preparation performed at: [facility], [facility] [place], [address] CLIA: [id number] PATHOLOGIST [facility] Comment: Srikanth Stark M.D., Board Certified in Anatomic Pathology and Cytopathology. (electronic signature) Pathologist Release Date/Time: 03/13/2025 11:30AM EXPLANATORY NOTE [facility] Comment: EXPLANATORY NOTE: The Pap is a screening test for cervical cancer. It is not a diagnostic test and is subject to false negative and false positive results. It is most reliable when a satisfactory sample, regularly obtained, is submitted with relevant clinical findings and history, and when the Pap result is evaluated along with historic and current clinical information. HPV E6/E7 Not Detected Not Detected [facility] Comment: Methodology: Experimental Psychologist-Mediated Amplification This assay detects E6/E7 viral messenger RNA (mRNA) from 14 high-risk HPV types (16,18,31,33,35,39,45,51,52,56,58,59,66,68). Cervical sources are required for HPV testing. If a vaginal source from a patient who has had a total hysterectomy with removal of cervix was submitted, please contact the testing laboratory for alternative testing options. For additional information, please refer to http://education.Talend/faq/BUE560m1 (This link if provided for information/ educational purposes only.) Test Performed at: [address] [address] [facility] SWAB OF ENDOCERVIX / Unknown 03/10/2025 1:32 PM CDT 03/11/2025 4:34 PM CDT us Kathya Marley MD PATHOLOGY/CYTOLOGY ORDERABL ES Final Result [facility] [phone] [place] [address] [place] [address] from Last 3 Months or Most Recently Relevant to Health Maintenance Insurance [employer] OPEN CHOICE PPO Care Teams Volleyball Assistant Coach Relationship Specialty [place] [address] [place] [address] PCP - General Internal Medicine 12/22/21
--- OUTSIDE RECORDS SUMMARY | 2025-07-18 07:31 | XMS_ITS | Encounter Summary ---
Author Organization [facility] Address [address] [place] [address] Care Team Providers Care Corporate Secretary Name Role Phone Shoshana Parker NP Primary Care Provider [phone] Encounter Details Date Type Department Care Team (Latest Contact Info) Description 06/11/2025 Results Follow-Up [facility] Sleep Medicine at [address] [place] [address] Shoshana Parker, YIELD ENGINEER [address] [facility] [address] [place] [address] CBC with auto differential, Comprehensive metabolic panel, Lipid panel, Additional followed-up results: 7 Social History Tobacco Use Types Packs/Day Years Used Date Smoking Tobacco: Never Smokeless Tobacco: Never AUDIT-C Answer Date Recorded Q1: How often do you have a drink containing alc ohol? 2-4 times a month 12/22/2024 Q2: How many drinks containi ng alcohol do you have on a typical day when you are drinking? 1 or 2 12/22/2024 Q3: How often do you have si x or more drinks on one occasion? Less than monthly 12/22/2024 PHQ-2 Answer Date Recorded PHQ-2 Total Score (If total score is 3 or more points, staff should administer the PHQ-9) 0 06/10/2025 Comments No Sex and Gender Information Value Date Recorded Sex Assigned at Not on file Legal Sex Female 11:40 PM PROTECTIVE SIGNAL OPERATIONS SUPERVISOR Gender Identity Not on file Sexual Orientation Not on file documented as of this encounter Plan of Treatment Upcoming Encounters Date Type Department Care Team (Late st Contact Info) Description 07/24/2025 8:30 AM PROTECTIVE SIGNAL OPERATIONS SUPERVISOR Hospital Encounter [address] [address] Richy Stevenson MD [address] [address] 07/24/2025 8:30 AM PROTECTIVE SIGNAL OPERATIONS SUPERVISOR Anesthesia Event [address] [address] Leon Lucas, EDMAR [address] [place] [address] 07/24/2025 8:30 AM PROTECTIVE SIGNAL OPERATIONS SUPERVISOR - 07/24/2025 9:00 AM PROTECTIVE SIGNAL OPERATIONS SUPERVISOR Surgery [address] [address] Richy Stevenson MD [address] [id number] COLONOSCOPY Scheduled Procedures Name Priority Associated Diagnoses Date/Ti me COLONOSCOPY Encounter for screening colonoscopy 07/24/2025 8:30 AM PROTECTIVE SIGNAL OPERATIONS SUPERVISOR documented as of this encounter Visit Diagnoses Not on filedocumented in this encounter Care Teams Corporate Secretary Relationship Specialty Start Date End Date Shoshana Parker NP [address] [place] [address] [phone] PCP - General Family Medicine 01/15/25 documented as of this encounter
--- OUTSIDE RECORDS SUMMARY | 2025-07-18 07:31 | XMS_ITS | Encounter Summary ---
Author Organization [facility] Address [address] [place] [address] Care Team Providers Care Sexual Assault Counsellor Name Role Phone Glory Mcgovern MD Primary Care Provider [phone] Reason for Visit * Reason Comments Medication Refill Encounter Details Date Type Department Care Team (Late Contact Info) Description 08/16/2018 Refill [facility] (Former[facility]3] Primary Care [place] [address] [facility] [place] [place] [phone] [place] [address] [place] [address] Social History Tobacco Use Types Packs/Day Years Used Date Smoking Tobacco: Never Smokeless Tobacco: Never Alcohol Use Standard Drinks/Week Comments Yes 5 (1 standard drink = 0.6 oz pur e alcohol) occasionally Comments No Sex and Gender Information Value Date Recorded Sex Assigned at Not on file Legal Sex Female 3:51 AM BACK JOINER Gender Identity Not on file Sexual Orientation Not on file documented as of this encounter Plan of Treatment Upcoming Encounters Date Type Department Care Team (Late Contact Info) Description 03/12/2026 11:10 AM CDT Office Visit [facility] [address] [place] [address] [place] [id number] [place] [address] [address] [place] [address] documented as of this encounter Visit Diagnoses Not on filedocumented in this encounter Care Teams Sexual Assault Counsellor Relationship Specialty [place] [id number] [place] [id number] PCP - General Internal Medicine 12/22/21 documented as of this encounter
[2025-07-18] MEDS: SODIUM CHLORIDE 0.9% IV 1,000 ML 150 ML IV CONT (07:46)
[2025-07-18] MEDS: ONDANSETRON INJ 4 MG/2 ML VIAL IV PUSH (07:46)
[2025-07-18] MEDS: MORPHINE SULFATE (*CRX) 4 MG/ML INJ IV PUSH ×3 (07:46→13:07)
[2025-07-18 07:47] LABS: Alanine Aminotransferase 12 U/L (6-35); Albumin Level 4.1 g/dL (3.5-5.1); Alkaline Phosphatase 59 U/L (38-126); Anion Gap 5 mmol/L (4-12); Aspartate Amino Transferase 21 U/L (14-36); Bilirubin,Total 0.3 mg/dL (0.2-1.3); Blood Urea Nitrogen 13 mg/dL (7-17); Calcium 8.6 mg/dL (8.4-10.2); Carbon Dioxide 23 mmol/L (22-30); Chloride 108 mmol/L (98-107); Estimated CRCL calculation 88 ml/min; Estimated Glomerular Filt Rate > 60; Glucose 102 mg/dL (65-110); Lipase 110 U/L (23-300); Potassium 3.9 mmol/L (3.4-5.0); Sodium 136 mmol/L (137-145); Total Protein 6.9 g/dL (6.3-8.2)
[2025-07-18 08:52] LABS: BEDSIDEPREGUCG Negative (Negative)
[2025-07-18 08:55] LABS: Add Urine Microscopic? NO; Appearance Urine Clear (Clear); Glucose Urine UA Negative (Negative); Leukocyte Esterase Ur Negative LEU/UL (Negative); Nitrate Urine Negative (Negative); Specific Grav Ur 1.008 (1.001-1.035)
--- NOTE | 2025-07-18 09:54 | ED_ITS ---
HPI - Abdominal Pain General Chief Complaint: Abdominal Pain Stated Complaint: abd pain Time Seen by Provider: 07/18/25 07:11 Source: patient Mode of arrival: ambulatory Limitations: no limitations History of Present Illness HPI narrative: 49-year-old with a history of hypertension, gallstones present to the ER with a complains of midepigastric and right upper quadrant pain since early this morning , patient states that for the past few days she has been having pain in the right upper quadrant area had a ultrasound at [facility] , ruel following strict diet . Denies any fever or chills ,had Nausea and vomiting earlier this morning . MD elicited complaint: abdominal pain Pertinent past history: other (Gall stone) Onset (ago): day(s) (3) Pain Consistency: constant Location: epigastric and RUQ Severity: moderate Quality: aching Radiation: RUQ Exacerbating factors: nothing Relieving factors: nothing Associated symptoms: denies other symptoms Related Data Allergies Allergy/AdvReac Type Severity Reaction Status Date / Time No Known Allergies Allergy Verified 07/18/25 06:46 Review of Systems 2 Review of Systems: All systems reviewed & are unremarkable except as noted in HPI and below Constitutional: Constitutional: Reports no additional constitutional complaints Eyes: Eyes: Reports no additional eye complaints ENT: Reports system reviewed and no additional complaints, except as documented Cardiovascular: Cardiovascular: Reports no additional cardiovascular complaints Respiratory: Respiratory: Reports no additional respiratory complaints Gastrointestinal: Gastrointestinal: Reports as per HPI Musculoskeletal: Musculoskeletal: Reports no additional musculoskeletal complaints Neurologic: Reports system reviewed and no additional complaints, except as documented Psychiatric: Psychiatric: Reports no additional psychiatric complaints Exam 2 Narrative: GENERAL: Well-appearing, well-nourished, and in no acute distress. HEAD: Normocephalic, atraumatic. EYES: PERRLA and EOMI. ENT: Nares clear, no rhinorrhea or epistaxis. Mucous membranes moist. NECK: Supple. CHEST: Clear to auscultation. No respiratory distress. HEART: Regular rate and rhythm. No murmur heard. Normal peripheral pulses. ABDOMEN: Soft, Mild epigastric tenderness , nondistended, normal active bowel sounds. EXTREMITIES: Normal range of motion. No edema. SKIN: Warm, dry, no rash. NEURO: No focal deficits. Alert and oriented x3. PSYCH: Normal mood and affect. Course Course Emergency Course: Patient was given IV morphine for pain control labs were drawn an ultrasound of the right upper quadrant showed multiple stones her pain improved for short period of time requesting additional doses of morphine for pain control. Informed her about the lab work and ultrasound findings. I discussed with Dr. Arellano will admit the pt , but surgery will not till Sunday , i did give the pt option of going home with pain medication and follow up as out pt. pt was hesitant to go home prefer to be admitted for pain control Vital Signs Vital signs: Vital Signs Temperature 36.6 C 07/18/25 06:56 Pulse Rate 91 07/18/25 06:56 Respiratory Rate 15 07/18/25 06:56 Blood Pressure 159/105 H 07/18/25 06:56 Pulse Oximetry 100 07/18/25 06:56 Temperature 36.6 C 07/18/25 06:56 Pulse Rate 63 07/18/25 09:09 Respiratory Rate 17 07/18/25 09:09 Blood Pressure 133/81 07/18/25 09:09 Pulse Oximetry 100 07/18/25 09:09 [facility] Narrative Medical decision making narrative: 49-year-old here with right upper quadrant pain with a history of gallstones from noon to abdominal workup including repeat ultrasound to make sure she has no acute cholecystitis. Control of the head neck she Differential Diagnosis Differential Diagnosis: Acute cholecystitis, pancreatitis, gastritis Medical Records I have reviewed the following patient records and this information was taken into consideration when formulating the assessment and plan.: previous labs and previous ER visits Lab Data [facility] Lab Attestation statement: I personally reviewed the patient's lab results. 07/18/25 07:24 07/18/25 07:24 Labs: Lab Results 07/18/25 07/18/25 07/18/25 Range/Units 07:24 08:49 08:51 WBC 5.6 (4.5-10.0) K/mm3 RBC 4.25 (4.2-5.4) M/mm3 Hgb 11.4 L (12.0-15.0) g/dL Hct 35.2 L (37.0-47.0) % MCV 82.8 (80-100) fl MCH 26.8 (26-34) pg MCHC 32.4 (32-36) g/dl RDW 14.1 (11.5-14.5) % Plt Count 289 (150-375) k/mm3 MPV 9.6 (7.4-10.4) fl Immature Gran % (Auto) 0.4 (0-0.5) % Neut % (Auto) 60.5 (45.5-73.1) % Lymph % (Auto) 29.2 (18.3-44.2) % Teller % (Auto) 8.4 (2.6-8.5) % Eos % (Auto) 1.1 (0-4.4) % Baso % (Auto) 0.4 (0.2-1.2) % Lymph # (Auto) 1.63 (0.9-3.2) K/mm3 Teller # (Auto) 0.5 (0.1-0.6) K/mm3 Eos # (Auto) 0.1 (0-0.3) K/mm3 Baso # (Auto) 0.0 (0.0-0.1) K/mm3 Abs Immat Gran (auto) 0.02 (0.00-0.031) K/mm3 Absolute Neuts (auto) 3.4 (1.3-6.7) K/mm3 Absolute Nucleated RBC 0.000 (0.0-0.012) K/mm3 Nucleated RBC % 0.0 (0.0-0.2) % Sodium 136 L (137-145) mmol/L Potassium 3.9 (3.4-5.0) mmol/L Chloride 108 H (98-107) mmol/L Carbon Dioxide 23 (22-30) mmol/L Anion Gap 5 (4-12) mmol/L BUN 13 (7-17) mg/dL Creatinine 0.73 (0.7-1.0) mg/dL Estim Creat Clear Calc 88 ml/min Estimated GFR > 60 (59 - ) Glucose 102 (65-110) mg/dL Calcium 8.6 (8.4-10.2) mg/dL Total Bilirubin 0.3 (0.2-1.3) mg/dL AST 21 (14-36) U/L ALT 12 (6-35) U/L Alkaline Phosphatase 59 (38-126) U/L Total Protein 6.9 (6.3-8.2) g/dL Albumin 4.1 (3.5-5.1) g/dL Lipase 110 (23-300) U/L Urine Color Yellow (Yellow) Urine Appearance Clear (Clear) Urine pH 6.5 (5.0-9.0) Ur Specific [place] 1.008 (1.001-1.035) Urine Protein Negative (Negative) mg/dL Urine Glucose (UA) Negative (Negative) mg/dL Urine Ketones Negative (Negative) mg/dL Ur Blood (Man) Negative (Negative) Urine Nitrate Negative (Negative) Urine Bilirubin Negative (Negative) Urine Urobilinogen 0.2 (<2.0) mg/dL Leukocyte Esterase Rfl Negative (Negative) KATHERIN/UL POC Urine HCG, Qual Negative (Negative) Imaging Data Radiologist's impression: ITS Impressions Upper Quadrant Ultrasound 07/18/25 08:59 IMPRESSION: 1. Gallstones. No evidence of cholecystitis. If clinical ambiguity, recommend HIDA scan. Discharge Plan Discharge Clinical Impression: Cholelithiases Qualifiers: Cholelithiasis location: gallbladder Cholecystitis presence: without cholecystitis Biliary obstruction: without biliary obstruction Qualified Code(s): K80.20 - Calculus of gallbladder without cholecystitis without obstruction Patient Disposition: Still a Patient Condition: Stable Instructions: Antibiotic Form Patient Language: Turkmen Follow-up/Referrals: Elena,JULIETA Ureña [Primary Care Provider, Unknown] Time of Disposition: 10:02
--- NOTE | 2025-07-18 10:32 | WPCEDHO ---
ED Hand Off Checklist All vitals saved:y IV Site documented:y All med administrations documented:y Triage Note Triage Note patient had ultrasound done on 07/18/25 06: and diagnosed with gallstones. the patient is having abdominal pain in the epigastric region that is radiating to her back and neck. 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 Allergies No Known Allergies Allergy (Verified 07/18/25 06:46) Active Medications including assessments/comments Sodium Chloride (Normal Saline Iv) 1,000 mls @ 150 mls/hr IV CONT .[id number] STA Stop: 07/18/25 14:20 Last Admin: 07/18/25 07:46 Dose: 150 mls/hr Documented By: IOANA Infusion/Titration Document 07/18/25 07:46 IOANA (Rec: 07/18/25 07:46 IOANA [id number]) Intake IV Site Peripheral Access Right Antecubital Container Volume 1,000 Waste Amount 0 Dosing Infusion Rate 150 Cumulative Dose Not Applicable Increase/Decrease Started Elapsed Time Elapsed Time ( 0m minutes) Administered/Completed Medications Discontinued Medications Morphine Sulfate (Morphine Sulfate (*Crx) 4 Mg/Ml Inj) 4 mg IV PUSH ONCE STA Stop: 07/18/25 07:42 Last Admin: 07/18/25 07:46 Dose: 4 mg Documented By: IOANA Morphine Sulfate (Morphine Sulfate (*Crx) 4 Mg/Ml Inj) 4 mg IV PUSH ONCE STA Stop: 07/18/25 09:20 Last Admin: 07/18/25 09:34 Dose: Not Given Documented By: IOANA Non-Admin Reason: Order Discontinued Morphine Sulfate (Morphine Sulfate (*Crx) 4 Mg/Ml Inj) 4 mg IV PUSH ONCE STA Stop: 07/18/25 09:21 Last Admin: 07/18/25 09:34 Dose: 4 mg Documented By: IOANA Ondansetron HCl (Ondansetron Inj 4 Mg/2 Ml Vial) 4 mg IV PUSH ONCE STA Stop: 07/18/25 07:42 Last Admin: 07/18/25 07:46 Dose: 4 mg Documented By: IOANA Interventions/Assessments IV / Saline Lock, Insert Start: 07/18/25 07:15 Freq: STAT Status: Active Protocol: Document 07/18/25 07:24 IOANA (Rec: 07/18/25 07:24 [facility] [id number]) IV Assessment Peripheral Access Right Antecubital IV Catheter Access Initiated IV Insertion Date 07/18/25 IV Insertion Time 07:24 Catheter Gauge 20 IV Insertion 1 Attempts Ultrasound Used for No Placement IV Site Assessment WNL IV Care and WNL Maintenance PA: Gastrointestinal Assessment Start: 07/18/25 06:52 Freq: Status: Active Protocol: Document 07/18/25 06:56 BACILIO (Rec: 07/18/25 07:03 SymoneSymone [id number]) GI Assessment Gastrointestinal Appetite Changes Symptoms Nausea/Vomiting Assessment Nausea Frequency Continuous Emesis Frequency None Last Vital Signs Temperature 98.0 F 07/18/25 10:27 Pulse Rate 60 07/18/25 10:27 Respiratory Rate 17 07/18/25 10:27 Pulse Oximetry 100 07/18/25 10:27 Blood Pressure 124/77 07/18/25 10:27 Blood Pressure Mean 92 07/18/25 10:27 Blood Pressure Position Left Lateral 07/18/25 10:27 Weight 75 kg 07/18/25 06:56 Last Result - Abnormals Only Hgb 11.4 g/dL (12.0-15.0) L 07/18/25 07:24 Hct 35.2 % (37.0-47.0) L 07/18/25 07:24 Sodium 136 mmol/L (137-145) L 07/18/25 07:24 Chloride 108 mmol/L (98-107) H 07/18/25 07:24 Most Recent Suicide Severity Rating Suicide Severity Rating NO RISK INDICATED 07/18/25 06:56
[2025-07-18] MEDS: LACTATED RINGERS 1,000 ML 125 ML IV CONT ×2 (11:15→20:04)
--- NOTE | 2025-07-18 11:20 | ADMGEN ---
This patient, Jyotsna Sinha, was admitted to 3 [facility] Surg Room 300-01. Patient/family oriented to hospital policies and general routines including ID bracelet, bed and alarms, visiting hours, pain management, procedures, bathroom and other care routines, personal items, smoking policy, room service/diet, and visiting hours. Information on how to activate the Rapid Response Team has been discussed. Patient/Family are encouraged to report perceived risks to care and to ask questions if they do not understand what they are told or what they should do. Latricia ESCOTO got report from ER nurse.
--- NOTE | 2025-07-18 11:56 | PM.IMHP2 ---
H&P: HPI History of Present Illness Date/Time: 07/18/25 11:56 Chief Complaint: Intractable abdominal pain, gallstones Narrative: This is a 49-year-old woman who presented to the emergency department this morning with severe abdominal pain. She has been experiencing intermittent abdominal pain for the past 6 months. She has had about 4 episodes of this pain over the 6 months. She had just seen her PCP and had a gallbladder ultrasound abdomen at [facility] 5 days ago. This showed evidence of gallstones. She then woke up overnight with severe abdominal pain again. Her previous episodes have lasted about 12-14 hours and she felt that she could not tolerate this pain this time. She denies fevers or chills. She has had some slightly looser stool with these episodes. She received pain meds in the emergency department but still her pain was not controlled. Labs showed no elevation of liver enzymes were or leukocytosis. Repeat ultrasound was performed today and gallstones were again seen but no signs of cholecystitis. Since she could not get her pain controlled in the ED she was admitted for pain control and further treatment. Review of Systems Review of Systems: All systems reviewed & are unremarkable except as noted in HPI and below Constitutional: Constitutional: Denies chills and Denies fever(s) Eyes: Eyes: Denies change in vision ENT: Denies hearing loss, Denies neck pain and Denies sore throat Cardiovascular: Cardiovascular: Denies chest pain and Denies dyspnea Respiratory: Respiratory: Denies cough, Denies dyspnea and Denies wheezing Gastrointestinal: Gastrointestinal: Reports as per HPI Genitourinary: Genitourinary: Denies hematuria and Denies dysuria Musculoskeletal: Musculoskeletal: Denies arthralgias, Denies joint swelling and Denies neck pain Allergic/Immunologic: Allergic/Immunologic: Denies wheezing [facility] Past Medical History Medical History (Updated 07/18/25 @ 12:01 by Lester Lozano DO) Hypertension, essential Surgical History Surgical History (Updated 07/18/25 @ 11:59 by Lester Lozano DO) History of tonsillectomy and adenoidectomy History of appendectomy Family History Family History (Updated 07/18/25 @ 11:24 by Aleida Roberts RN) Father Cancer Hypertension CHF (congestive heart failure) Sibling Cancer Mother Hypertension Afib Social History Social History Smoking status: Never smoker Alcohol intake: current Drinks per week: 4 Substance use: current Substance use type: marijuana Last use: 07/17/25 Lack of Transportation: No Lack of Food: Never True Current Housing: I Have Housing Concerned About Future Housing: No Difficulty Paying Gas/Electric Bills: No Difficulty Paying for Meds: No Currently Unemployed: No Education: Don't Know Difficulty w/ Childcare or Family Care: No Spiritual care concerns: No Meds Home Medications and Allergies Home Medications ?Medication ?Instructions ?Recorded ?Confirmed ?Type losartan 25 mg tablet 25 mg PO DAILY 07/18/25 07/18/25 History propranolol 10 mg tablet 10 mg PO Q12H 07/18/25 07/18/25 History Allergies Allergy/AdvReac Type Severity Reaction Status Date / Time No Known Allergies Allergy Verified 07/18/25 11:34 Vital Signs Vital Signs - 24 hr 07/18/25 06:56 07/18/25 09:09 07/18/25 10:27 Temperature 97.9 F 98.0 F Pulse Rate 91 63 60 Respiratory Rate 15 17 17 Blood Pressure 159/105 H 133/81 124/77 Pulse Oximetry 100 100 100 Exam Const: General: alert; No acute distress Orientation/consciousness: patient oriented x3 Limitations: no limitations HENMT: Head: normocephalic and atraumatic Ears: hearing grossly normal bilaterally Face/Nose/Sinus: Normal external nose present and Normal nares present Mouth: Yes Normal oral and palatal mucosa present and Yes moist mucous membranes Eyes: General: appearance normal, both eyes and all related structures Conjunctivae: conjunctivae normal Sclera: sclerae normal Pupils: Equal, round and reactive pupils present EOM: EOMs intact bilaterally Neck: Neck: normal visual inspection, full ROM, no lymphadenopathy, supple and no JVD Lymphatic: no lymphadenopathy noted Chest: Chest palpation & inspection: normal inspection of the chest Resp: Effort & Inspection: normal respiratory effort and able to speak in complete sentences Auscultation: clear to auscultation bilaterally Percussion: percussion normal Cardio: Jugular venous distension: no JVD Rate: regular rate Rhythm: regular rhythm Heart sounds: S1 normal heart sound present and S2 normal heart sound present Peripheral pulses: Peripheral pulses 2+ throughout GI: Inspection: normal to inspection and non-distended GI Palp: Yes Soft to palpation, Yes Tenderness to palpation present (GI) (Mild epigastric), No Guarding due to palpation present (GI), No Rebound tenderness present and Yes Other GI palpation findings present (Negative Fonseca sign) Auscultation: normal bowel sounds : General: Yes no CVA tenderness Back/Spine/Pelvis: Back: no CVA tenderness Skin: General skin exam: normal color and dry skin Neuro: General: patient oriented x3, gait normal, moves all extremities, no focal motor deficits and CN's II-XI intact bilaterally Cranial nerves: Yes Equal, round and reactive pupils present Speech: normal speech Extrem: General: normal to inspection and capillary refill normal Results Labs Labs: Short CBC 07/18/25 Range/Units 07:24 WBC 5.6 (4.5-10.0) K/mm3 Hgb 11.4 L (12.0-15.0) g/dL Hct 35.2 L (37.0-47.0) % Plt Count 289 (150-375) k/mm3 BMP 07/18/25 07:24 Sodium 136 L Potassium 3.9 Chloride 108 H Carbon Dioxide 23 BUN 13 Creatinine 0.73 Glucose 102 Calcium 8.6 Liver Function 07/18/25 Range/Units 07:24 Total Bilirubin 0.3 (0.2-1.3) mg/dL AST 21 (14-36) U/L ALT 12 (6-35) U/L Alkaline Phosphatase 59 (38-126) U/L Albumin 4.1 (3.5-5.1) g/dL Urine 07/18/25 Range/Units 08:49 Urine Color Yellow (Yellow) Urine Appearance Clear (Clear) Urine pH 6.5 (5.0-9.0) Ur Specific [place] 1.008 (1.001-1.035) Urine Protein Negative (Negative) mg/dL Urine Glucose (UA) Negative (Negative) mg/dL Imaging US - abdomen: Radiologist's impression: ITS Impressions Upper Quadrant Ultrasound 07/18/25 08:59 IMPRESSION: 1. Gallstones. No evidence of cholecystitis. If clinical ambiguity, recommend HIDA scan. Assessment and Plan Assessment and plan (1) Intractable epigastric abdominal pain: Code(s): R10.13 - Epigastric pain Status: Acute Assessment and Plan: I have reviewed the ultrasound and discussed the findings with the patient. She has evidence of cholelithiasis but no signs of cholecystitis. This would typically be treated as an outpatient but patient was unable to get pain control to be able to be discharged from the ED. she has been placed in the hospital primarily for pain control. Discussed that laparoscopic cholecystectomy could be performed during this admission if unable to get symptoms to resolve. Will allow patient have clear liquids today while continuing to control pain with IV pain medications. Will repeat labs in the morning and reassess. If pain is persisting will plan for laparoscopic cholecystectomy Sunday. (2) Cholelithiases: Qualifiers: Biliary obstruction: without biliary obstruction Cholecystitis presence: without cholecystitis Cholelithiasis location: gallbladder Qualified Code(s): K80.20 - Calculus of gallbladder without cholecystitis without obstruction Code(s): K80.20 - Calculus of gallbladder without cholecystitis without obstruction Status: Acute Hospitalist MIPS Medication Reconciliation I have utilized all available resources to obtain, update and review the patients current medications (includes all prescriptions, OTC, herbals, cannabis, and nutritional supplements).: Yes
[2025-07-18] MEDS: MORPHINE SULFATE (*CRX) 4 MG/ML INJ 2 MG IV PUSH ×2 (16:47→21:04)
[2025-07-18] MEDS: PROPRANOLOL HCL 10 MG TABLET PO (16:48)
[2025-07-18] MEDS: ACETAMINOPHEN 325 MG TABLET 650 MG PO (20:03)
[2025-07-19 00:55] VITALS: BP 103/46; PULSE 59; RESP 18; TEMP 36.1; O2SAT 99
[2025-07-19 04:45] VITALS: BP 128/79; PULSE 77; RESP 18; TEMP 35.8; O2SAT 100
[2025-07-19] MEDS: LACTATED RINGERS 1,000 ML 100 ML IV CONT (05:49)
[2025-07-19 05:50] VITALS: PULSE 63
[2025-07-19] MEDS: PROPRANOLOL HCL 10 MG TABLET PO (05:50)
[2025-07-19 06:11] LABS: Hematocrit 34.6 % (37.0-47.0); Hemoglobin 11.0 g/dL (12.0-15.0); Immature Granulocyte Percent A 0.2 % (0-0.5); Lymphocytes Absolute Auto 1.92 K/mm3 (0.9-3.2); Mean Corpuscular HGB Conc 31.8 g/dl (32-36); Mean Corpuscular Hemoglobin 26.9 pg (26-34); Mean Corpuscular Volume 84.6 fl (80-100); Nucleated Red Blood Cells Absolute Auto 0.000 K/mm3 (0.0-0.012); Nucleated Red Blood Cells Perc 0.0 % (0.0-0.2); Platelet Count Result 256 k/mm3 (150-375); Red Blood Count 4.09 M/mm3 (4.2-5.4); White Blood Count 4.3 K/mm3 (4.5-10.0)
[2025-07-19 06:24] LABS: Alanine Aminotransferase 11 U/L (6-35); Albumin Level 3.3 g/dL (3.5-5.1); Alkaline Phosphatase 50 U/L (38-126); Anion Gap 3 mmol/L (4-12); Aspartate Amino Transferase 16 U/L (14-36); Bilirubin,Total 0.3 mg/dL (0.2-1.3); Blood Urea Nitrogen 6 mg/dL (7-17); Calcium 8.4 mg/dL (8.4-10.2); Carbon Dioxide 25 mmol/L (22-30); Chloride 108 mmol/L (98-107); Estimated CRCL calculation 87 ml/min; Estimated Glomerular Filt Rate > 60; Glucose 86 mg/dL (65-110); Potassium 3.7 mmol/L (3.4-5.0); Sodium 136 mmol/L (137-145); Total Protein 5.8 g/dL (6.3-8.2)
[2025-07-19 07:53] VITALS: BP 131/77; PULSE 57; RESP 21; TEMP 35.7; O2SAT 100
[2025-07-19] MEDS: LOSARTAN POTASSIUM 25 MG TABLET PO (08:47)
[2025-07-19] MEDS: ACETAMINOPHEN 325 MG TABLET 650 MG PO (08:54)
[2025-07-19 11:53] VITALS: BP 135/60; PULSE 55; RESP 20; TEMP 35.8; O2SAT 100
[2025-07-19 14:00] VITALS: BP 122/67; PULSE 60; RESP 20; TEMP 36.1; O2SAT 100
--- NOTE | 2025-07-19 14:05 | P.DS_ITS ---
DS: Admitting Diagnosis Discharge Date 07/19/2025 Admitting Diagnosis symptomatic cholelithiasis, intractable epigastric abdominal pain DS: Discharge Diagnosis Discharge Diagnosis (1) Symptomatic cholelithiasis: Code(s): K80.20 - Calculus of gallbladder without cholecystitis without obstruction Status: Acute (2) Hypertension, essential: Code(s): I10 - Essential (primary) hypertension Status: Acute DS: Summary Hospital Course Reason for hospitalization: intractable epigastric abdominal pain Hospital Course: this is a 49-year-old woman who had presented to the emergency department on 07/18/2025 with severe epigastric abdominal pain. She had been having multiple episodes of this pain over the past several months. She recently had a outpatient ultrasound which showed evidence of cholelithiasis. Workup in the emergency department showed normal white blood count and liver enzymes and ultrasound only showed cholelithiasis but no signs of cholecystitis. Attempt was made to get her pain controlled and discharge her home however the ED physicians said that her pain was not controlled. She was then placed in observation for further treatment of her pain. On 07/19 her pain was better controlled with oral Tylenol alone. She was not requiring IV pain medications any longer. She was trialed on a low-fat diet and tolerated this as well. Her liver enzymes and white blood count remained normal. Due to scheduling congestion is a in the OR with emergency surgeries, I discussed with patient that she may not be able to have her surgery for another 2-3 days. Since her pain was better controlled now I discussed discharging home and planning laparoscopic cholecystectomy as an outpatient. Patient felt comfortable with this approach as long as she had some pain meds to go home with in case the severe pain were to return. She was counseled on remaining on a low-fat diet and will be sent home with a prescription for [place]. My office will be contacting patient to schedule laparoscopic cholecystectomy as an outpatient. Status at Discharge Functional status at discharge: independent ambulation Overall status at discharge: patient is back to baseline Time Spent with Patient Time attestation: Total time spent providing and/or coordinating discharge services: Time spent: Less than 30 minutes Exam Const: General: comfortable and no acute distress Orientation/consciousness: patient oriented x3 Resp: Effort & Inspection: normal respiratory effort Auscultation: clear to auscultation bilaterally Cardio: Rate: regular rate Rhythm: regular rhythm Heart sounds: S1 normal heart sound present and S2 normal heart sound present GI: Inspection: normal to inspection and non-distended GI Palp: Yes Soft to palpation, No Tenderness to palpation present (GI), No Guarding due to palpation present (GI) and No Rebound tenderness present Auscultation: normal bowel sounds DS: Data Data Completed and Pending Labs on day of discharge: Labs from last 24 hours 07/19/25 05:33 WBC 4.3 L RBC 4.09 L Hgb 11.0 L Hct 34.6 L MCV 84.6 MCH 26.9 MCHC 31.8 L RDW 13.8 Plt Count 256 MPV 9.7 Immature Gran % (Auto) 0.2 Neut % (Auto) 43.6 L Lymph % (Auto) 44.4 H Fountain % (Auto) 10.0 H Eos % (Auto) 1.6 Baso % (Auto) 0.2 Lymph # (Auto) 1.92 Fountain # (Auto) 0.4 Eos # (Auto) 0.1 Baso # (Auto) 0.0 Abs Immat Gran (auto) 0.01 Absolute Neuts (auto) 1.9 Absolute Nucleated RBC 0.000 Nucleated RBC % 0.0 Sodium 136 L Potassium 3.7 Chloride 108 H Carbon Dioxide 25 Anion Gap 3 L BUN 6 L D Creatinine 0.74 Estim Creat Clear Calc 87 Estimated GFR > 60 Glucose 86 Calcium 8.4 Total Bilirubin 0.3 AST 16 ALT 11 Alkaline Phosphatase 50 Total Protein 5.8 L Albumin 3.3 L Imaging Radiologist's impression: ITS Impressions Upper Quadrant Ultrasound 07/18/25 08:59 IMPRESSION: 1. Gallstones. No evidence of cholecystitis. If clinical ambiguity, recommend HIDA scan. Discharge Plan Discharge Attending physician on discharge: Lester Lozano Discharging Clinician: Lester Lozano Patient Disposition: Home Activity: unlimited Diet: low fat Patient Instructions: Antibiotic Form, Low Fat Diet (DC), Opioid Safety (DC) Patient Language: Macedonian Stand Alone Forms: General Discharge Information Follow-up/Referrals: Lester Lozano, [Physician, General Surgery] - Other Referral Note: Office will call to schedule laparoscopic cholecystectomy as an outpatient. Discharge Medications: New hydrocodone-acetaminophen 5-325 mg tablet 1 tablet PO Q4H PRN (Reason: pain) Qty: 10 0RF Continued losartan 25 mg tablet 25 mg PO DAILY propranolol 10 mg tablet 10 mg PO Q12H Rx Instructions: Take at 6AM AND 6PM Date of admission: 07/18/25 10:03 Primary Care Provider: FredShoshana Admitting Provider: Lester Lozano Attending physician on admission: Lester Lozano Condition: Improved
--- OUTSIDE RECORDS SUMMARY | 2025-07-21 07:24 | XMS_ITS | Clinical Summary ---
Author Organization [facility] Address [address] [place] [address] Phone Care Team Providers Care Loan Administrator Name Role Phone Glory Mcgovern MD Primary Care Provider Allergies No known active allergies Medications fluticasone propionate (FLONASE) 50 mcg/spray Liscomb, Suspension nasal inhaler Administer 1 Liscomb in each nostril daily. 16 Gram 1 [...] Data STL ABSTRACTION Provider, Abstract 05/20/2025 Telephone [facility] Clinical Support [address] [place] [id number] Brandy Rajan, RN Medical Records 04/22/2025 External Device Data STL ABSTRACTION Provider, Abstract 04/21/2025 External Device Data STL ABSTRACTION Provider, Abstract from Last 3 Months Immunizations Immunization Administration Dates Next Due (GARDASIL 9)(9-45 YRS) HUMAN PAPILLOMAVIRUS VACCINE, TYPES 6, 11, 16, 18, 31, 33, 45, 52, 58, NONAVALENT (9VHPV), 2 OR 3 DOSE, IM 04/21/2021 ([place])(12 YR UP) COVID-19 VACCINE - EMERGENCY USE AUTHORIZATION, MRNA, [id number](PF) 30 MCG/0.3 ML IM SUSP 10/07/2020,09/16/2020 INFLUENZA [...] on file 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 RECOMMENDATIONS: Comparison with priors DICTATION LOCATION: [facility] Narrative 04/08/2025 4:17 PM CDT MAMMO 3D [...] W/HPV (03/10/2025 1:32 PM CDT) CLINICAL INFORMATION [email or web address] Comment:None given LAST MENSTRUAL PERIOD [email or web address] Comment:NA PREV PAP: [email or web address] Comment:NA PREV BX: [email or web address] Comment:NA SOURCE [email or web address] Comment:Endocervix ADEQUACY: [email or web address] Comment: Satisfactory for evaluation. Endocervical/transformation zone component present. GENERAL CATEGORIZATION: (A) [email or web address] Comment:Cytology Results: Ep ithelial Cell Abnormality PAP INTERP (A) [email or web address] Comment: Atypical Squamous Cells of Undetermined Significance (ASC-US) Endometrial cells present in a woman 45 years of age or older. COMMENT (PAP TEST) [email or web address] Comment: This Pap test has been evaluated [...] commonly, endometrial neoplasia. Clinical correlation is suggested. PIERCING MACHINE OPERATOR: Qu [facility] Comment: PCM, CT(ASCP) CT Screening Location: [place] [address] [place] [address] CLIA: [id number] Slide preparation performed at: [facility] [place], [address] CLIA: [id number] PATHOLOGIST [facility] Comment: Srikanth Stark M.D., Board Certified in Anatomic Pathology and Cytopathology. (electronic signature) Pathologist Release Date/Time: 03/13/2025 11:30AM EXPLANATORY NOTE [facility] Comment: EXPLANATORY NOTE: The Pap is a [...] information. HPV E6/E7 Not Detected Not Detected [facility] Comment: Methodology: Vehicle Check In Clerk-Mediated Amplification This assay detects E6/E7 viral messenger RNA (mRNA) from 14 high-risk HPV types (16,18,31,33,35,39,45,51,52,56,58,59,66,68). Cervical sources are required for HPV testing. If a vaginal source from a patient who has had a total hysterectomy with removal of cervix was submitted, please contact the testing laboratory for alternative testing options. For additional information, please refer to http://education.[employer]/faq/WXD671y3 (This link if provided for information/ educational purposes only.) Test Performed at: [address] [address] [facility] Genital SWAB OF ENDOCERVIX / Unknown 03/10/2025 1:32 PM CDT 03/11/2025 4:34 PM CDT us Kathya Marley MD PATHOLOGY/CYTOLOGY ORDERABL ES Final Result [facility] [phone] [place] [address] [place] [address] from Last 3 Months or Most Recently Relevant to Health Maintenance Insurance [employer] OPEN CHO[employer] PPO Care Teams Loan Administrator Relationship Specialty Start [place] [address] [place] [address] PCP - General Internal Medicine 12/22/21
--- OUTSIDE RECORDS SUMMARY | 2025-07-21 07:24 | XMS_ITS | Encounter Summary ---
Author Organization [facility] Address [address] [place] [address] Care Team Providers Care Medical Center Director Name Role Phone Glory Mcgovern MD Primary Care Provider [phone] Reason for Visit * Reason Comments Medication Refill Encounter Details Date Type Department Care Team (Late Contact Info) Description 08/16/2018 Refill [facility] [place] [facility] [place] [address] [place] [phone] [place] [address] [place] [address] Social History Tobacco Use Types Packs/Day Years Used Date Smoking Tobacco: Never Smokeless Tobacco: Never Alcohol Use Standard Drinks/Week Comments Yes 5 (1 standard drink = 0.6 oz pur e alcohol) occasionally Comments No Sex and Gender Information Value Date Recorded Sex Assigned at Not on file 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 Gender Identity Not on file Sexual Orientation Not on file documented as of this encounter Plan of Treatment Upcoming Encounters Date Type Department Care Team (Late Contact Info) Description 03/12/2026 11:10 AM CDT Office Visit [facility] [address] [place] [address] [place] [id number] [place] [address] [address] [place] [address] documented as of this encounter Visit Diagnoses Not on filedocumented in this encounter Care Teams Medical Center Director Relationship Specialty [place] [address] [place] [phone] PCP - General Internal Medicine 12/22/21 documented as of this encounter
--- OUTSIDE RECORDS SUMMARY | 2025-07-21 07:24 | XMS_ITS | Encounter Summary ---
Author Organization [facility] Address [address] [place] [address] Care Team Providers Care Landfill Attendant Name Role Phone Shoshana Parker NP Primary Care Provider [phone] Encounter Details Date Type Department Care Team (Latest Contact Info) Description 06/11/2025 Results Follow-Up [facility] Sleep Medicine at [address] [place] [address] Shoshana Parker, LABEL STAMPER [address] [facility] [address] [place] [address] CBC with auto differential, Comprehensive [...] on file Legal Sex Female 11:40 PM DISPATCH MANAGER Gender Identity Not on file Sexual Orientation Not on file documented as of this encounter Plan of Treatment Upcoming Encounters Date Type Department Care Team (Late st Contact Info) Description 08/28/2025 10:30 AM DISPATCH MANAGER Hospital Encounter [address] [address] Richy Stevenson MD [address] [address] 08/28/2025 10:30 AM DISPATCH MANAGER Anesthesia Event [address] [address] Leon Lucas, EDMAR [address] [place] [address] 08/28/2025 10:30 AM DISPATCH MANAGER - 08/28/2025 11:00 AM DISPATCH MANAGER Surgery [address] [address] Richy Stveenson MD [address] [id number] COLONOSCOPY Scheduled Procedures Name Priority Associated Diagnoses Date/Ti me COLONOSCOPY Encounter for screening colonoscopy 08/28/2025 10:30 AM DISPATCH MANAGER documented as of this encounter Visit Diagnoses Not on filedocumented in this encounter Care Teams Landfill Attendant Relationship Specialty Start Date End Date Shoshana Parker NP [address] [place] [id number] PCP - General Family Medicine 01/15/25 documented as of this encounter
--- OUTSIDE RECORDS SUMMARY | 2025-07-21 07:24 | XMS_ITS | Encounter Summary ---
Author Organization [facility] Address 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 Gender Identity Not on file Sexual Orientation Not on file documented as of this encounter Plan of Treatment Upcoming Encounters Date Type Department Care Team (Late st Contact Info) Description 03/12/2026 11:10 AM CDT Office Visit [facility] SOIL ANALYST [address] [place] [address] Kathya Marley MD [address] [place] [address] [address] [place] [address] documented as of this encounter Visit Diagnoses Not on filedocumented in this encounter Care Teams Cokeman Relationship Specialty [place] [address] [place] [address] PCP - General Internal Medicine 12/22/21 documented as of this encounter
--- OUTSIDE RECORDS SUMMARY | 2025-07-21 07:24 | XMS_ITS | Encounter Summary ---
Author Organization [facility] Address 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 Gender Identity Not on file Sexual Orientation Not on file documented as of this encounter Plan of Treatment Upcoming Encounters Date Type Department Care Team (Late st Contact Info) Description 03/12/2026 11:10 AM CDT Office Visit [facility] EMBEDDED HARDWARE ENGINEER [address] [place] [address] Kathya Marley MD [address] [place] [address] [address] [place] [address] documented as of this encounter Visit Diagnoses Not on filedocumented in this encounter Care Teams Cage Manager Relationship Specialty [place] [address] [place] [address] PCP - General Internal Medicine 12/22/21 documented as of this encounter
--- OUTSIDE RECORDS SUMMARY | 2025-07-21 07:24 | XMS_ITS | Clinical Summary ---
Author Organization [facility] Address [address] [place] [address] Care Team Providers Care Senior Infrastructure Architect Name Role Phone Shoshana Parker NP Primary Care Provider [phone] Allergies No known active allergies Medications albuterol HFA (PROVENTIL HFA,VENTOLIN HFA,PROAIR HFA) 90 mcg/actuation inhaler Inhale 2 puffs every 6 (six) hours as needed for wheezing or shortness of breath 1 each 5 Active losartan (COZAAR) 25 mg tablet TAKE 1 TABLET(25 MG) BY MOUTH DAILY 90 tablet 1 5 Active propranoloL (INDERAL) 20 mg tablet 5 Active ondansetron (ZOFRAN) 4 mg tabletIndication s:Nausea and vomiting, unspecified vomiting type Take 1 tablet (4 mg) total 30 minutes before starting colonoscopy prep. Use the 2nd tablet as needed for nausea and vomiting. 2 tablet 5 Active Additional Information Patient not taking.Reported on 07/06/2025 propranoloL (INDERAL) 10 mg tablet TAKE 1 TABLET(10 MG) BY MOUTH TWICE DAILY 180 tablet 1 5 Active Active Problems Problem Noted Date Diagnosed Date Gastroesophageal reflux disease 07/07/2025 Colicky right upper quadrant pain 07/07/2025 Encounter for screening colonoscopy 06/18/2025 Palpitations 06/10/2025 Assessment & Plan (06/10/2025 9:57 AM ENGINE REPAIR SUPERVISOR): Controlled on propranolol Mild intermittent asthma without complication Assessment & Plan (06/10/2025 9:57 AM ENGINE REPAIR SUPERVISOR): Screening for colon cancer 11/04/2024 Cervicalgia 04/24/2024 [...] 04/24/2024 Assessment & Plan (06/10/2025 9:57 AM ENGINE REPAIR SUPERVISOR): Orders: CBC with auto differential; Future Comprehensive metabolic panel; Future Lipid panel; Future Thyroid Function Newton; Future Assessment & Plan (04/24/2024 10:07 AM [...] 10/23/2023 Assessment & Plan (07/06/2025 1:34 PM ENGINE REPAIR SUPERVISOR): History of. Pain did improve a little [...] work. Assessment & Plan (06/10/2025 9:57 AM ENGINE REPAIR SUPERVISOR): Controlled on propranolol and losartan 25mg daily Orders: CBC with auto differential; Future Comprehensive metabolic panel; Future Lipid panel; Future Thyroid Function Newton; Future Assessment & Plan (04/24/2024 10:05 AM [...] Department Care Team Description 07/14/2025 11:45 AM ENGINE REPAIR SUPERVISOR - 07/14/2025 11:59 PM ENGINE REPAIR SUPERVISOR Hospital Encounter [facility] - Imaging [address] [place] [address] Colicky right upper quadrant pain Discharge Disposition: Discharge to home or self care 07/14/2025 Results Follow-Up [facility] Primary Care at [address] [phone] Shoshana Parker NP RUQ 07/07/2025 Orders Only [facility] at [address] [phone] Richy Stevenson MD Gastroesophageal reflux disease, unspecified whether esophagitis present (Primary Dx); Colicky right upper quadrant pain 07/07/2025 Orders Only [facility] at [address] [phone] Richy Stevenson MD 07/06/2025 12:30 PM ENGINE REPAIR SUPERVISOR Office Visit [facility] at [address] [address] Shoshana Parker NP Gastroesophageal reflux disease without esophagitis (Primary Dx); Colicky right upper quadrant pain 07/06/2025 Nurse Triage [facility] at [address] [phone] Shoshana Parker NP 06/18/2025 Orders Only [facility] at [address] [phone] Richy Stevenson MD Nausea and vomiting, unspecified vomiting type (Primary Dx); Encounter for screening colonoscopy 06/17/2025 Telephone [facility] Medicine Minimally Invasive Surgery [facility]patient Health 7th Floor [address] [place] [address] Rupa Woodson, [facility] New Referral 06/11/2025 Results Follow-Up [facility] Sleep Medicine at [address] [place] [phone] Shoshana Parker NP CBC with auto differential, Comprehensive metabolic panel, Lipid panel, Additional followed-up results: 7 06/10/2025 9:15 AM ENGINE REPAIR SUPERVISOR Lab [address] [address] Annual physical exam; HTN (hypertension), benign; Lipid screening; Need for hepatitis B screening test; Need for hepatitis C screening test 06/10/2025 8:30 AM ENGINE REPAIR SUPERVISOR Office Visit [facility] Primary Care at [address] [phone] Shoshana Parker NP Encounter for screening colonoscopy [...] on file Legal Sex Female 11:40 PM ENGINE REPAIR SUPERVISOR Gender Identity Not on file Sexual Orientation Not on file Obstetrics History Para Term AB IAB SAB Ectopic Multiple Livin g Live Births 0 0 0 0 0 0 0 0 0 0 0 Last Filed Vital Signs Vital Sign Reading Time Taken Comments Blood Pressure 134/88 07/06/2025 12:41 PM ENGINE REPAIR SUPERVISOR Pulse 73 07/06/2025 12:41 PM ENGINE REPAIR SUPERVISOR Temperature 36.5 C (97.7 F) 07/06/2025 12:41 PM ENGINE REPAIR SUPERVISOR Respiratory Rate 16 07/06/2025 12:41 PM ENGINE REPAIR SUPERVISOR Oxygen Saturation 98% 07/06/2025 12:41 PM ENGINE REPAIR SUPERVISOR Inhaled Oxygen Concentration - - Weight 76.3 kg (168 lb 3.2 oz) 07/06/2025 12:41 PM ENGINE REPAIR SUPERVISOR Height 177.8 cm (5' 10) 07/06/2025 12:41 PM ENGINE REPAIR SUPERVISOR Body Mass Index 24.13 07/06/2025 12:41 PM ENGINE REPAIR SUPERVISOR Plan of Treatment Upcoming Encounters Date Type Department Care Team (Late st Contact Info) Description 08/28/2025 10:30 AM ENGINE REPAIR SUPERVISOR Hospital Encounter [address] [phone] Richy Stevenson MD [address] [address] 08/28/2025 10:30 AM ENGINE REPAIR SUPERVISOR Anesthesia Event [id number] [place], [place] [phone] Leon Lucas, CHEMISTRY LAB INSTRUCTOR [address] [place] [address] 08/28/2025 10:30 AM ENGINE REPAIR SUPERVISOR - 08/28/2025 11:00 AM ENGINE REPAIR SUPERVISOR Surgery [id number] [place] [address] Richy Stevenson MD [address] [place] [address] [address]ILL [address] [place] [address] COLONOSCOPY Scheduled Procedures Name Priority Associated Diagnoses Date/Ti me COLONOSCOPY Encounter for screening colonoscopy 08/28/2025 10:30 AM ENGINE REPAIR SUPERVISOR Health Maintenance Due Date Last Done Comments [...] Read Routine (OP Routine) 07/14/2025 12:10 PM ENGINE REPAIR SUPERVISOR Colicky right upper quadrant pain EGFR Routine 06/10/2025 9:22 AM ENGINE REPAIR SUPERVISOR Annual physical exam HTN (hypertension), benign DIFFERENTIAL AUTO Routine 06/10/2025 9:2 2 AM ENGINE REPAIR SUPERVISOR Annual physical exam HTN (hypertension), benign THYROID FUNCTION CASCADE Routine 06/10/2025 9:22 AM ENGINE REPAIR SUPERVISOR Annual physical exam HTN (hypertension), benign LIPID PANEL Routine 06/10/2025 9:22 AM ENGINE REPAIR SUPERVISOR Annual physical exam HTN (hypertension), benign Lipid screening COMPREHENSIVE METABOLIC PANEL Routine 06/10/2025 9:22 AM ENGINE REPAIR SUPERVISOR Annual physical exam HTN (hypertension), benign CBC WITH AUTO DIFFERENTIAL Routine 06/10/2025 9:22 AM ENGINE REPAIR SUPERVISOR Annual physical exam HTN (hypertension), benign HEPATITIS C ANTIBODY Routine 06/10/2025 9:22 AM ENGINE REPAIR SUPERVISOR Need for hepatitis C screening test HEPATITIS B SURFACE ANTIBODY (IMMUNE STATUS) Routine 06/10/2025 9:22 AM ENGINE REPAIR SUPERVISOR Need for hepatitis B screening test HEPATITIS B CORE ANTIBODY, TOTAL Routine 06/10/2025 9:22 AM ENGINE REPAIR SUPERVISOR Need for hepatitis B screening test HEPATITIS B SURFACE ANTIGEN Routine 06/10/2025 9:22 AM ENGINE REPAIR SUPERVISOR Need for hepatitis B screening test SCREENING MAMMOGRAM BILATERAL W BENNY Schedule Routine, Read Routine (OP Routine) 12/06/2021 3:51 PM CDT Screening mammogram, encounter for from Last 3 Months or Most Recently Relevant to Health Maintenance Results * US RUQ (07/14/2025 12:10 PM ENGINE REPAIR SUPERVISOR) Anatomical Region Laterality Modality Abdomen N/A Ultrasound 07/14/2025 1:27 PM ENGINE REPAIR SUPERVISOR Impressions 07/14/2025 1:27 PM ENGINE REPAIR SUPERVISOR 1. Cholelithiasis. The gallbladder is contracted the time of this examination. 2. Otherwise negative right upper quadrant sonogram. Electronically signed by: Salvatore Diaz M.D. Narrative 07/14/2025 1:27 PM ENGINE REPAIR SUPERVISOR EXAM: US RUQ CLINICAL HISTORY: Abdominal pain. [...] by: Salvatore Diaz M.D. Shoshana Parker NP IMG US PROCEDURES Final Resul t * eGFR (06/10/2025 9:22 AM ENGINE REPAIR SUPERVISOR) eGFR >90 >=60 mL/min/1. 73 m2 Comment: [...] Inclusion of Race in Diagnosing Kidney Disease, RODOLFO 2020). The CKD-EPI equation should not be used for patients with unstable renal function and has not been validated in children and those over 70. Current interpretive data was last reviewed 2021. Blood 06/10/2025 9:22 AM ENGINE REPAIR SUPERVISOR 06/10/2025 10:41 AM ENGINE REPAIR SUPERVISOR Shoshana Parker NP LAB BLOOD ORDERABLES Final Re sult [facility] [address] [facility] Department [place] [address] * Differential, auto (06/10/2025 9:22 AM ENGINE REPAIR SUPERVISOR) Neutrophil abs 4.36 1.50 - 6.50 K/cumm Imm gran abs 0.01 0.00 - 0.10 K/cumm [facility] Lymphocyte abs 2.27 0.80 - 3.30 K/cumm [facility] Monocyte abs 0.63 0.20 - 0.80 K/cumm [facility] Eosinophil abs 0.05 0.00 - 0.50 K/cumm [facility] Basophil abs 0.02 0.00 - 0.10 K/cumm [facility] Neutrophil pct 59.4 % [facility] Comment: Interpretive Data Percent cell count reference ranges are not reported, since discordance with absolute values may lead to misinterpretation of CBC data. Current Interpretive Data was last revised on 2017. Imm gran pct 0.1 % [facility] Comment: Interpretive Data Percent cell count reference ranges are not reported, since discordance with absolute values may lead to misinterpretation of CBC data. Current Interpretive Data was last revised on 2017. Lymphocyte pct 30.9 % [facility] Comment: Interpretive Data Percent cell count reference ranges are not reported, since discordance with absolute values may lead to misinterpretation of CBC data. Current Interpretive Data was last revised on 2017. Monocyte pct 8.6 % [facility] Comment: Interpretive Data Percent cell count reference ranges are not reported, since discordance with absolute values may lead to misinterpretation of CBC data. Current Interpretive Data was last revised on 2017. Eosinophil pct 0.7 % [facility] Comment: Interpretive Data Percent cell count reference ranges are not reported, since discordance with absolute values may lead to misinterpretation of CBC data. Current Interpretive Data was last revised on 2017. Basophil pct 0.3 % [facility] Comment: Interpretive Data Percent cell count reference ranges are not reported, since discordance with absolute values may lead to misinterpretation of CBC data. Current Interpretive Data was last revised on 2017. Blood 06/10/2025 9:22 AM ENGINE REPAIR SUPERVISOR 06/10/2025 10:43 AM ENGINE REPAIR SUPERVISOR Shoshana Parker CAST IRON DIPPER LAB BLOOD ORDERABLES Final Re sult Performing Organization Address City/[facility]/ZIP Co de Phone Number [address] [place] [address] * Thyroid Function Newton (06/10/2025 9:22 AM ENGINE REPAIR SUPERVISOR) [facility] TSH 2.05 0.30 - 4.20 mcIUnit/mL Blood 06/10/2025 9:22 AM ENGINE REPAIR SUPERVISOR 06/10/2025 10:41 AM ENGINE REPAIR SUPERVISOR Shoshana Parker CAST IRON DIPPER LAB BLOOD ORDERABLES Final Re sult Performing Organization Address [facility] Co de Phone Number [address] [address] * CBC with auto differential (06/10/2025 9:22 AM ENGINE REPAIR SUPERVISOR) [facility] WBC 7.34 3.80 - 9.90 K/cumm Hgb 12.2 11.9 - 15.5 g/dL [facility] Hct 37.5 35.6 - 45.5 % [facility] Plt 284 150 - 400 K/cumm [facility] MPV 10.2 9.1 - 12.3 fL [facility] RBC 4.46 3.90 - 5.20 M/cumm [facility] MCV 84.1 81.3 - 96.4 fL [facility] MCH 27.4 27.1 - 33.3 pg [facility] MCHC 32.5 32.3 - 35.7 g/dL [facility] RDW CV 13.6 11.1 - 14.9 % [facility] RDW SD 41.8 35.7 - 48.1 fL [facility] NRBC abs 0.00 0.00 - 0.01 K/cumm [facility] Blood 06/10/2025 9:22 AM ENGINE REPAIR SUPERVISOR 06/10/2025 10:43 AM ENGINE REPAIR SUPERVISOR Shoshana Parker NP LAB BLOOD ORDERABLES Final Re sult Performing Organization Address [facility] Co de Phone Number [facility] [employer] [place] [address] * Hepatitis C antibody Blood (06/10/2025 9:22 AM ENGINE REPAIR SUPERVISOR) Hep C Ab Nonreactive Nonreactive Comment: Antibodies [...] revised on 2019. Blood 06/10/2025 9:22 AM ENGINE REPAIR SUPERVISOR 06/10/2025 10:41 AM ENGINE REPAIR SUPERVISOR Shoshana Parker NP LAB MICROBIOLOGY - GENERAL OR DERABLES Final Result Performing Organization Address [facility] Co de Phone Number [facility] [employer] [place], [place] [phone] * Hepatitis B core antibody, total Blood (06/10/2025 9:22 AM ENGINE REPAIR SUPERVISOR) Hep B core IgG/IgM Nonreactive Nonreactive Comment:Testing performed by : [facility], [address] [place] [address] Blood 06/10/2025 9:22 AM ENGINE REPAIR SUPERVISOR 06/10/2025 5:40 PM ENGINE REPAIR SUPERVISOR Shoshana Parker NP LAB MICROBIOLOGY - GENERAL OR DERABLES Final Result Performing Organization Address [facility] de Phone Number [address] [place] [address] * Hepatitis B surface antibody (immune status) Blood (06/10/2025 9:22 AM ENGINE REPAIR SUPERVISOR) HBsAb (immune status) Nonreactive Comment: Interpretive Data [...] revised on 19. Blood 06/10/2025 9:22 AM ENGINE REPAIR SUPERVISOR 06/10/2025 10:41 AM ENGINE REPAIR SUPERVISOR us Shoshana Parker NP LAB MICROBIOLOGY - GENERAL OR DERABLES Final Result Performing Organization Address [facility] de Phone Number [address] [place] [address] * Hepatitis B Surface Antigen Blood (06/10/2025 9:22 AM ENGINE REPAIR SUPERVISOR) HepBsAg Nonreactive Nonreactive Blood 06/10/2025 9:22 AM ENGINE REPAIR SUPERVISOR 06/10/2025 10:41 AM ENGINE REPAIR SUPERVISOR Shoshana Parker NP LAB MICROBIOLOGY - GENERAL OR DERABLES Final Result Performing Organization Address [facility] de Phone Number [address] [place] [address] * Lipid panel (06/10/2025 9:22 AM ENGINE REPAIR SUPERVISOR) Cholesterol 163 30 - 199 mg/dL Comment: [...] 2018. LDL, calculated 81 <=129 mg/dL [facility] Comment: Interpretive Data Ages < [...] 3. Konrad Nguyễn et al. SUMAN Cardiol. 2019December 04;5(5):540-548. doi: 10.1001/jamacardio.2020.0013 Current Interpretive Data was last revised on 2024. Non-HDL Cholesterol 97 mg/dL [facility] Comment: Interpretive Data Ages < [...] ratio 2 [facility] Blood 06/10/2025 9:22 AM ENGINE REPAIR SUPERVISOR 06/10/2025 10:41 AM ENGINE REPAIR SUPERVISOR Shoshana Parker CAST IRON DIPPER LAB BLOOD ORDERABLES Final Re sult [facility] [address] [facility] Department [place] [address] * Comprehensive metabolic panel (06/10/2025 9:22 AM ENGINE REPAIR SUPERVISOR) Sodium 136 135 - 145 mmol/L Potassium, pl 4.4 3.3 - 4.9 mmol/L [facility] Chloride 104 97 - 110 mmol/L [facility] CO2 22 22 - 32 mmol/L [facility] Anion gap 10 2 - 15 mmol/L [facility] BUN 9 6 - 25 mg/dL [facility] Creatinine 0.76 0.60 - 1.10 mg/dL [facility] Glucose 93 70 - 199 mg/dL [facility] Comment: Interpretive Data Fasting glucose >/= 126 [...] classification and Diagnosis of Diabetes Diabetes Care 2021; 46: S19-S40. Current interpretive data was last revised 2022. Calcium 9.3 8.5 - 10.3 mg/dL [facility] Bilirubin, total 0.4 0.1 - 1.2 mg/dL [facility] Protein, pl 6.9 6.5 - 8.5 g/dL [facility] Albumin 4.3 3.5 - 5.0 g/dL [facility] Alk phos 56 40 - 130 Units/L [facility] ALT 9 7 - 45 Units/L [facility] AST 16 10 - 45 Units/L [facility] Blood 06/10/2025 9:22 AM ENGINE REPAIR SUPERVISOR 06/10/2025 10:41 AM ENGINE REPAIR SUPERVISOR Shoshana Parker NP LAB BLOOD ORDERABLES Final Re sult Performing Organization Address City/State/[facility] Co de Phone Number [facility] [address] [facility] Department [place] [address] * (ABNORMAL) Screening Mammogram Bilateral W Benny [...] Recently Relevant to Health Maintenance Insurance AETNA I Had Cancer HMO/POS AET[employer] XenithY HMO/POS * Guarantor: [facility] Account Type Relation to Patient Date of Phone Billing Address Donor Other Care Teams Senior Infrastructure Architect Relationship Specialty Start Date End Date Shoshana Parker NP [address] [facility] [address] [place] [address] PCP - General Family Medicine 01/15/25
--- OUTSIDE RECORDS SUMMARY | 2025-07-21 07:25 | XMS_ITS | Encounter Summary ---
Author Organization [facility] Address [address] [place] [address] Care Team Providers Care Network Systems Administrator Name Role Phone Glory Mcgovern MD Primary Care Provider [phone] Reason for Visit * Reason Comments Medication Refill Encounter Details Date Type Department Care Team (Late Contact Info) Description 08/14/2019 Refill [facility] Primary Care [place] [address] [facility] [place] [address] [place], [facility] [address] [place] [address] Elevated BP without diagnosis of hypertension Social History Tobacco Use Types Packs/Day Years Used Date Smoking Tobacco: Never Smokeless Tobacco: Never Alcohol Use Standard Drinks/Week Comments Yes 5 (1 standard drink = 0.6 oz pur e alcohol) occasionally Comments No Sex and Gender Information Value Date Recorded Sex Assigned at Not on file Legal Sex Female 3:51 AM RESAWYER Gender Identity Not on file Sexual Orientation Not on file documented as of this encounter Miscellaneous Notes * Telephone Encounter - Elmer Cha - 08/14/2019 9:21 AM CST Called patient and set appointment for her on 08/25/2019 at 8:00 am Refilled her metoprolol for onemonth only. WYER documented in this encounter Plan of Treatment Upcoming Encounters Date Type Department Care Team (Late st Contact Info) Description 03/12/2026 11:10 AM CDT Office Visit [facility] WATCH ASSEMBLY INSPECTOR [facility] [address] [facility] [address] [place] [address] [place] [address] [place] [address] documented as of this encounter Visit Diagnoses Diagnosis Elevated BP without diagnosis of hypertension documented in this encounter Care Teams Network Systems Administrator Relationship Specialty [place] [address] [place] [address] PCP - General Internal Medicine 12/22/21 documented as of this encounter
--- OUTSIDE RECORDS SUMMARY | 2025-07-21 07:25 | XMS_ITS | Clinical Summary ---
Author Organization [facility] [facility] Address [address] [facility] [place] [address] Care Team Providers Care Duplicator Punch Set Up Operator Name Role Phone No, Pcp JOB DEVELOPER FOR DEAF ADULTS Primary Care Provider Unavailabl e Allergies No [...] Comments Blood Pressure 110/68 06/19/2016 12:18 PM ART THERAPY CERTIFIED SUPERVISOR Pulse 67 06/19/2016 12:18 PM ART THERAPY CERTIFIED SUPERVISOR Temperature 36.6 C (97.9 F) 06/19/2016 12:18 PM ART THERAPY CERTIFIED SUPERVISOR Respiratory Rate 18 06/19/2016 12:18 PM ART THERAPY CERTIFIED SUPERVISOR Oxygen Saturation 98% 06/19/2016 12:18 PM ART THERAPY CERTIFIED SUPERVISOR Inhaled Oxygen Concentration - - Weight 73.5 kg (162 lb) 06/19/2016 12:18 PM ART THERAPY CERTIFIED SUPERVISOR Height 175.9 cm (5' 9.25) 06/19/2016 12:[address] Body Mass Index 23.75 06/19/2016 12:18 PM ART THERAPY CERTIFIED SUPERVISOR Plan of Treatment Not on file Medical Devices Not on file Care Teams Duplicator Punch Set Up Operator Relationship Specialty Start Date End Date No, Pcp, JOB DEVELOPER FOR DEAF ADULTS N/A Do not use PCP - General Family Medicine 07/22/20
--- OUTSIDE RECORDS SUMMARY | 2025-07-21 07:25 | XMS_ITS | Clinical Summary ---
Author Organization [facility] Address [address] [place] [address] Care Team Providers Care Cae Engineer Name Role Phone Shoshana Parker JEEP MECHANIC-MANAGER RETAIL STORE Primary Care Provider [phone] Source Comments [facility],non-owned Affiliates and Associated Physician Practices is amultiple site organization consisting of ambulatory clinics and hospital sitesin [place], [place], [place] and [place]. This disclosure is being madepursuant to the Care Everywhere program and may not contain all information available regarding this patient. 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 Not on file Not on file No t on file Last Filed Vital Signs Vital Sign Reading Time Taken Comments Blood Pressure 142/72 10/08/2017 2:57 PM MONORAIL OPERATOR Pulse 76 10/08/2017 11:55 AM MONORAIL OPERATOR Temperature 36.8 C (98.2 F) 10/08/2017 11:55 AM MONORAIL OPERATOR Respiratory Rate 16 10/08/2017 11:55 AM MONORAIL OPERATOR Oxygen Saturation 100% 10/08/2017 2:57 PM MONORAIL OPERATOR Inhaled Oxygen Concentration - - Weight 76.2 [...] 3 - 19+ 3-dose series) 1995 PAP SMEAR 07/17/2012 07/17/2009 LIPID TESTING 10/29/2013 10/29/2008 DEPRESSION SCREENING 08/06/2024 COVID-19 VACCINE ( - season) 2025 10/07/2020, 09/16/2020 INFLUENZA VACCINE [...] participate in the care of your patient. [facility] utilizes [employer] as a reminder system to notify patients [...] with benign pathology in 2021. Shoshana Parker JEEP MECHANIC-MANAGER RETAIL STORE MAMMO ORDERABLES Final Res ult * LIPID [...] PM CDT Narrative Resulting Agency Comment [facility] [place] [address] [facility] [phone] Richard Barone MD LAB - CHEMISTRY ORDERABLES Final Result [facility] ACCOUNT BILL [address] [place] [address] from Last 3 Months or Most Recently Relevant to Health [place] [address] [address] [id number] Care Teams Cae Engineer Relationship Specialty Start Date End Date Shoshana Parker APRN-CLARA PCP - General Nurse Practitioner Family 11/30/23
--- OUTSIDE RECORDS SUMMARY | 2025-07-21 07:25 | XMS_ITS | Encounter Summary ---
Author Organization [facility] Address [address] [place] [address] Care Team Providers Care Seam Hammerer Name Role Phone Glory Mcgovern MD Primary Care Provider [phone] Encounter Details Date Type Department Care Team (Late Contact Info) Description 10/04/1998 Outpatient Historical HIS [facility] MaldonadoTavares Social History Tobacco Use Types Packs/Day Years Used Date Smoking Tobacco: Never Assessed Comments Unknown Sex and Gender Information Value Date Recorded Sex Assigned at Not on file Legal Sex Female 3:51 AM ORTHOPEDIC SHOE MAKER Gender Identity Not on file Sexual Orientation Not on file documented as of this encounter Plan of Treatment Upcoming Encounters Date Type Department Care Team (Late st Contact Info) Description 03/12/2026 11:10 AM CDT [facility] [address] [place] [address] Kathya Marley MD [address] [place] [address] Dr [address] [place] [address] documented as of this encounter Visit Diagnoses Not on filedocumented in this encounter Care Teams Seam Hammerer Relationship Specialty [place] [address] [place] [address] PCP - General Internal Medicine 12/22/21 documented as of this encounter
== END 2025-07-19 14:55 | disposition home or self-care (01) ==
LOC: ANHED 10:02 → ANH3MEDSUR 07-19 14:11
PROVIDERS: Admitting Provider Surgery; Emergency Provider Family Medicine; PCP Nurse Practitioner Family; Visit Provider Surgery
DX: K80.20 Calculus of gallbladder without cholecystitis without obstruction (principal); I10 Essential (primary) hypertension; F12.90 Cannabis use, unspecified, uncomplicated; Z87.19 Personal history of other diseases of the digestive system; Z90.49 Acquired absence of other specified parts of digestive tract
CPT/HCPCS: 36415; 76705; 80053; 81003; 81025; 83690; 85025; 96374; 96375; 96376; 99285; A9270; G0378; J2270; J2405; J7030; J7120

== ENCOUNTER 2025-07-22 04:08 | Day surgery (SDC) | payer OTHER, SELFPAY ==
[2025-07-21 08:44] VITALS: BMI 23.6
--- NOTE | 2025-07-21 08:51 | SUR.PREOP ---
[facility] has started construction of its new state of the art ER which will open Spring 2026. With this, we anticipate parking may be a challenge for some our surgical patients and families. Parking spaces are limited but are available for all Surgical, obstetrics, and ER patients sharing this lot. If you arrive and find you are having a hard time finding a parking space, please note that we understand the challenges, please drive around the hospital and park near Hospital Entrance 1. When you enter this entrance, you can ask a volunteer to direct or take you back to the surgical waiting area to check in. We appreciate everyone?s understanding of these expected challenges while we build for your future. Report to the Outpatient Waiting Room, entrance under the green pavilion located off [address], at time 11:30a.m. on date 07/21/2025. Planned Procedure Time: 1:30p.m..? Time changes happen often and if your time is changed the preop area will call you the afternoon before. - You and your visitor will be asked to self-screen and do not enter if you have any COVID symptoms. Please call surgeon if you need to reschedule. - A mask is optional within the hospital at this time. Patients may have clear liquids (water, carbonated beverages, clear teas, apple juice) until 3 hours prior to surgery with a maximum of 20 ounces. - No food from midnight until time of surgery and no smoking, or chewing tobacco (or any form of nicotine). No chewing gum, candy or mints. Take only the following medications with a SIP of water on the morning of surgery: Propranolol DO NOT STOP ANY OF YOUR OTHER PRESCRIPTION MEDICATIONS PRIOR TO SURGERY EXCEPT THE FOLLOWING Hold all vitamins and supplements for 3 days per anesthesiologist. Medications to discontinue per physician N/A Date to take last dose N/A Please no make-up, nail vietnamese, hairspray, perfume, deodorant, or body powder the day of surgery.? No jewelry (including any body piercings) or valuables the day of surgery, leave them at home.? Please take a shower or bath the night before, or the morning of, surgery with an antibacterial soap.? Wear comfortable, loose fitting clothing.? Children are encouraged to wear pajamas. - Jewelry must be removed prior to entering the operating room.? Rings and piercings that are not removed may be cut off. - The hospital will not accept responsibility for valuables.? - Please leave all valuables, including medications, at home the day of surgery. If you are going home after surgery, a licensed driver guard must drive you home.? - NO public transportation without another adult if you receive anesthesia. - We recommend that an adult stay with you for 24 hours following discharge. - We also recommend that you do not drive, make important decision, drink alcoholic beverages, or take any drugs that were not prescribed by your health care provider for at least 24 hours after your discharge time. For Pediatric surgeries, we recommend two adults accompany the child home. Follow any additional instructions given to you from your surgeon. Telephone instructions given to Jyotsna Sinha and asked if any additional questions and then verbalized understanding. Patient advised to call surgeon office or pre surgery nurse liaison [phone] if any additional questions.
[2025-07-22] VITALS (10 sets, daily range): BP systolic 121–153; BP diastolic 70–92; PULSE 62–80; RESP 12–18; TEMP 36.1–36.6; O2SAT 98–100; BMI 23.7
--- OUTSIDE RECORDS SUMMARY | 2025-07-22 04:10 | XMS_ITS | Encounter Summary ---
Author Organization [facility] Address [address] [place] [address] Care Team Providers Care Flanging Operator Name Role Phone Glory Mcgovern MD Primary Care Provider [phone] Reason for Visit * Reason Comments Medication Refill Encounter Details Date Type Department Care Team (Late Contact Info) Description 08/16/2018 Refill [facility] Primary [place] [address] [facility] [address] [place] [address] [place] [address] Social History Tobacco Use Types Packs/Day Years Used Date Smoking Tobacco: Never Smokeless Tobacco: Never Alcohol Use Standard Drinks/Week Comments Yes 5 (1 standard drink = 0.6 oz pur e alcohol) occasionally Comments No Sex and Gender Information Value Date Recorded Sex Assigned at Not on file Legal Sex Female 3:51 AM HEALTH PROGRAM SPECIALIST Gender Identity Not on file Sexual Orientation Not on file documented as of this encounter Plan of Treatment Upcoming Encounters Date Type Department Care Team (Late Contact Info) Description 03/12/2026 11:10 AM CDT Office Visit [facility] ALUMINUM MOLDING MACHINE OPERATOR [address] [place] [address] [place]ya [place] [id number] [place] [address] [address] [place] [address] documented as of this encounter Visit Diagnoses Not on filedocumented in this encounter Care Teams Flanging Operator Relationship Specialty [place] [address] [place] [id number] PCP - General Internal Medicine 12/22/21 documented as of this encounter
--- OUTSIDE RECORDS SUMMARY | 2025-07-22 04:11 | XMS_ITS | Clinical Summary ---
Author Organization [facility] Address [address] [place] [address] Phone Care Team Providers Care Civil Engineering Project Manager Name Role Phone Glory Mcgovern MD Primary Care Provider [phone] Allergies No known active allergies Medications fluticasone propionate (FLONASE) 50 mcg/spray [place], Suspension nasal inhaler Administer 1 [place] in each nostril daily. 16 Gram 1 [...] Data STL ABSTRACTION Provider, Abstract 05/20/2025 Telephone [facility] Clinical Support [address] [place] [address] Brandy Rajan, RN Medical Records 04/22/2025 External Device Data STL ABSTRACTION Provider, Abstract from Last 3 Months Immunizations Immunization Administration Dates Next Due (GARDASIL 9)(9-45 YRS) HUMAN PAPILLOMAVIRUS VACCINE, TYPES 6, 11, 16, 18, 31, 33, 45, 52, 58, NONAVALENT (9VHPV), 2 OR 3 DOSE, IM 04/21/2021 (PFIZER)(12 YR UP) COVID-19 VACCINE - EMERGENCY USE AUTHORIZATION, MRNA, [id number](PF) 30 MCG/0.3 ML IM SUSP 10/07/2020,09/16/2020 INFLUENZA [...] on file Legal Sex Female 3:51 AM RINKMAN Gender Identity Not on file Sexual Orientation [...] AM CDT Office Visit [facility] LEGAL RECORDS MANAGER [address] [place] [address] [place] [address] [place] [address] Health Maintenance Due Date Last Done Comments DTAP/TDAP/TD VACCINES (1 - Tdap) 1995 HEPATITIS B VACCINES (1 of 3 - 19+ 3-dose series) 1995 COLORECTAL SCREENING 2021 Colorectal Cancer Screening 2021 FIT-DNA Q 3 years 2021 FIT/FOBT Q 1 year 2021 Flex Sig/CT Colonography Q 5 years 2021 INFLUENZA VACCINE (#1) 2025 , 06/19/2016, 06/19/2015 COVID-19 Vaccine (3 2024-2 6 season) 2025 10/07/2020, 09/16/2020 BREAST CANCER [...] priors. RECOMMENDATIONS: Comparison with priors DICTATION LOCATION: [facility] Narrative 04/08/2025 4:17 PM CDT MAMMO 3D [...] W/HPV (03/10/2025 1:32 PM CDT) CLINICAL INFORMATION [facility] [place] Comment:None given LAST MENSTRUAL PERIOD [facility] [place] Comment:NA PREV PAP: [facility] [place] Comment:NA PREV BX: [facility] [place] Comment:NA SOURCE [facility] [place] Comment:Endocervix ADEQUACY: [facility] [place] Comment: Satisfactory for evaluation. Endocervical/transformation zone component present. GENERAL CATEGORIZATION: (A) [facility] [place] Comment:Cytology Results: Ep ithelial Cell Abnormality PAP INTERP (A) [facility] [place] Comment: Atypical Squamous Cells of Undetermined Significance (ASC-US) Endometrial cells present in a woman 45 years of age or older. COMMENT (PAP TEST) [facility] [place] Comment: This Pap test has been evaluated with the [employer] PubPrep(R) Imaging System. Suggest clinical correlation and follow-up as clinically appropriate The clinical significance of endometrial cells should be interpreted in the context of menstrual history and reproductive status. If out of phase of cycle or after menopause, this finding may be associated with normal functioning endometrium, benign endometrium with stromal breakdown, hormonal alterations and, less commonly, endometrial neoplasia. Clinical correlation is suggested. MUNICIPAL SERVICES MANAGER: Kaylen [facility] [place] Comment: PCM, CT(ASCP) CT Screening Location: [place] [address] [place] [address] CLIA: [id number] Slide preparation performed at: [facility], [address] [place] [address], [address] CLIA: [id number] PATHOLOGIST [facility] Comment: Srikanth Stark M.D., Board Certified in Anatomic Pathology and Cytopathology. (electronic signature) Pathologist Release Date/Time: 03/13/2025 11:30AM EXPLANATORY NOTE Que [facility] Comment: EXPLANATORY NOTE: The Pap is [...] E6/E7 Not Detected Not Detected [facility] Comment: Methodology: Biodiesel Plant Superintendent-Mediated Amplification This assay detects E6/E7 viral messenger RNA (mRNA) from 14 high-risk HPV types (16,18,31,33,35,39,45,51,52,56,58,59,66,68). Cervical sources are required for HPV testing. If a vaginal source from a patient who has had a total hysterectomy with removal of cervix was submitted, please contact the testing laboratory for alternative testing options. For additional information, please refer to http://education.[employer]faq/VNL450k7 (This link if provided for information/ educational purposes only.) Test Performed at: [address] [address] [facility] DESIR Genital SWAB OF ENDOCERVIX / Unknown 03/10/2025 1:32 PM CDT 03/11/2025 4:34 PM CDT us Kathya Marley MD PATHOLOGY/CYTOLOGY ORDERABL ES Final Result [facility] [phone] [address] from Last 3 Months or Most Recently Relevant to Health Maintenance Insurance [employer] OPEN CHOICE PPO Care Teams Civil Engineering Project Manager Relationship Specialty [place] [address] [place] [address] PCP - General Internal Medicine 12/22/21
--- OUTSIDE RECORDS SUMMARY | 2025-07-22 04:11 | XMS_ITS | Encounter Summary ---
Author Organization [facility] Address [address] [place] [address] Care Team Providers Care Molecular Genetic Pathologist Name Role Phone Glory Mcgovern MD Primary Care Provider [phone] Encounter Details Date Type Department Care Team (Late Contact Info) Description 10/07/1998 Outpatient Historical HIS [facility] Tavares [place] Social History Tobacco Use Types Packs/Day Years Used Date Smoking Tobacco: Never Assessed Comments Unknown Sex and Gender Information Value Date Recorded Sex Assigned at Not on file Legal Sex Female 3:51 AM TITLE CURATIVE SPECIALIST Gender Identity Not on file Sexual Orientation Not on file documented as of this encounter Plan of Treatment Upcoming Encounters Date Type Department Care Team (Late st Contact Info) Description 03/12/2026 11:10 AM CDT Office Visit [facility] FUR PULLER [address] [place] [address] Kathya Marley MD [address] [place] [address] [address] [place] [address] documented as of this encounter Visit Diagnoses Not on filedocumented in this encounter Care Teams Molecular Genetic Pathologist Relationship Specialty [place] [address] [place] [address] PCP - General Internal Medicine 12/22/21 documented as of this encounter
--- OUTSIDE RECORDS SUMMARY | 2025-07-22 04:11 | XMS_ITS | Encounter Summary ---
Author Organization [facility] Address [address] [place] [address] Care Team Providers Care Financial Quantitative Analyst Name Role Phone Glory Mcgovern MD Primary Care Provider [phone] Reason for Visit * Reason Comments Medication Refill Encounter Details Date Type Department Care Team (Late Contact Info) Description 08/14/2019 Refill [facility] Primary Care [place] [address] [facility] [place] [address] Elba Ann, [facility] [address] [place] [address] Elevated BP without diagnosis of hypertension Social History Tobacco Use Types Packs/Day Years Used Date Smoking Tobacco: Never Smokeless Tobacco: Never Alcohol Use Standard Drinks/Week Comments Yes 5 (1 standard drink = 0.6 oz pur e alcohol) occasionally Comments No Sex and Gender Information Value Date Recorded Sex Assigned at Not on file Legal Sex Female 3:51 AM SUBSTANCE ABUSE THERAPIST Gender Identity Not on file Sexual Orientation Not on file documented as of this encounter Miscellaneous Notes * Telephone Encounter - Elmer Cha - 08/14/2019 9:21 AM CST Called patient and set appointment for her on 08/25/2019 at 8:00 am Refilled her metoprolol for onemonth only. TANCE ABUSE THERAPIST documented in this encounter Plan of Treatment Upcoming Encounters Date Type Department Care Team (Late st Contact Info) Description 03/12/2026 11:10 AM CDT Office Visit [facility] TURN SUPERVISOR [facility] [address] [facility] [address] [place] [address] [place] [address] [place] [address] documented as of this encounter Visit Diagnoses Diagnosis Elevated BP without diagnosis of hypertension documented in this encounter Care Teams Financial Quantitative Analyst Relationship Specialty [place] [address] [place] [address] PCP - General Internal Medicine 12/22/21 documented as of this encounter
--- OUTSIDE RECORDS SUMMARY | 2025-07-22 04:11 | XMS_ITS | Encounter Summary ---
Author Organization [facility] Address [address] [place] [address] Care Team Providers Care Intelligence Operations Specialist Name Role Phone Glory Mcgovern MD Primary Care Provider Encounter Details Date Type Department Care Team (Late Contact Info) Description 04/25/1999 Outpatient Historical HIS [facility]G [facility] MaldonadoTavares Social History Tobacco Use Types Packs/Day Years Used Date Smoking Tobacco: Never Assessed Comments Unknown Sex and Gender Information Value Date Recorded Sex Assigned at Not on file Legal Sex Female 3:51 AM DIRECTOR OF MARKET ANALYSIS Gender Identity Not on file Sexual Orientation Not on file documented as of this encounter Plan of Treatment Upcoming Encounters Date Type Department Care Team (Late st Contact Info) Description 03/12/2026 11:10 AM CDT Office Visit [facility] SPRING FLOOR SERVICE WORKER [address] [place] [address] Kathya Marley MD [address] [place] [address] [address] [place] [address] documented as of this encounter Visit Diagnoses Not on filedocumented in this encounter Care Teams Intelligence Operations Specialist Relationship Specialty [place] [address] [place] [address] PCP - General Internal Medicine 12/22/21 documented as of this encounter
--- OUTSIDE RECORDS SUMMARY | 2025-07-22 04:11 | XMS_ITS | Clinical Summary ---
Author Organization [facility] [employer] Address [address] [place] [address] Care Team Providers Care Sales Account Executive Name Role Phone Shoshana Parker ORACLE WE[employer]ENTER CONSULTANT-TAKER OUT Primary Care Provider [phone] Source Comments [facility] [employer],non-owned Affiliates and Associated Physician Practices is amultiple site organization consisting of ambulatory clinics and hospital sitesin [place], [place] and [place]. This disclosure is being madepursuant to the Care Everywhere program and may not contain all information available regarding this patient. 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 [facility] Breast Care utilizes [employer] as a reminder system to notify patients [...] with benign pathology in 2021. Shoshana Parker [employer]LE WEBCENTER CONSULTANT-TAKER OUT MAMMO ORDERABLES Final Res ult * LIPID [...] PM CDT Narrative Resulting Agency Comment [facility] [address] [facility] [id number] Richard Barone MD LAB - CHEMISTRY ORDERABLES Final Result [facility] ACCOUNT BILL [address] [place] [address] from Last 3 Months or Most Recently Relevant to Health Maintenance Insurance [employer] [id number] Care Teams Sales Account Executive Relationship Specialty Start Date End Date Shoshana Parker APRN-CLARA PCP - General Nurse Practitioner Family 11/30/23
--- OUTSIDE RECORDS SUMMARY | 2025-07-22 04:11 | XMS_ITS | Encounter Summary ---
Author Organization [facility] Address [address] [place] [address] Care Team Providers Care Outplacement Consultant Name Role Phone Shoshana Parker NP Primary Care Provider [phone] Encounter Details Date Type Department Care Team (Latest Contact Info) Description 06/11/2025 Results Follow-Up [facility] Sleep Medicine at [address] [place] [address] Shoshana Parker, OWNER SPA DIRECTOR [address] [facility] [address] [place] [address] CBC with auto differential, Comprehensive [...] on file Legal Sex Female 11:40 PM BOSS DYER Gender Identity Not on file Sexual Orientation Not on file documented as of this encounter Plan of Treatment Upcoming Encounters Date Type Department Care Team (Late st Contact Info) Description 08/28/2025 10:30 AM BOSS DYER Hospital Encounter [address] [address] Richy Stevenson MD [address] [address] 08/28/2025 10:30 AM BOSS DYER Anesthesia Event [address] [address] Leon Lucas, EDMAR [address] [place] [address] 08/28/2025 10:30 AM BOSS DYER - 08/28/2025 11:00 AM BOSS DYER Surgery [address] [address] Richy Stevenson MD [address] [id number] COLONOSCOPY Scheduled Procedures Name Priority Associated Diagnoses Date/Ti me COLONOSCOPY Encounter for screening colonoscopy 08/28/2025 10:30 AM BOSS DYER documented as of this encounter Visit Diagnoses Not on filedocumented in this encounter Care Teams Outplacement Consultant Relationship Specialty Start Date End Date Shoshana Parker NP [address] [place] [phone] PCP - General Family Medicine 01/15/25 documented as of this encounter
--- OUTSIDE RECORDS SUMMARY | 2025-07-22 04:11 | XMS_ITS | Encounter Summary ---
Author Organization [facility] Address [address] [place] [address] Care Team Providers Care Threading Machine Tender Name Role Phone Glory Mcgovern MD Primary Care Provider [phone] Encounter Details Date Type Department Care Team (Late Contact Info) Description 10/04/1998 Outpatient Historical HIS MMG [facility] MEDICINE MaldonadoTavares Social History Tobacco Use Types Packs/Day Years Used Date Smoking Tobacco: Never Assessed Comments Unknown Sex and Gender Information Value Date Recorded Sex Assigned at Not on file Legal Sex Female 3:51 AM PHOTOGRAPHIC INTELLIGENCE OFFICER Gender Identity Not on file Sexual Orientation Not on file documented as of this encounter Plan of Treatment Upcoming Encounters Date Type Department Care Team (Late st Contact Info) Description 03/12/2026 11:10 AM CDT Office Visit [facility] CALLISTHENICS INSTRUCTOR [address] [place] [address] Kathya Marley MD [address] [place] [address] [address] [place] [address] documented as of this encounter Visit Diagnoses Not on filedocumented in this encounter Care Teams Threading Machine Tender Relationship Specialty [place] [address] [place] [address] PCP - General Internal Medicine 12/22/21 documented as of this encounter
--- OUTSIDE RECORDS SUMMARY | 2025-07-22 04:11 | XMS_ITS | Encounter Summary ---
Author Organization [facility] Healthcare Address [address] [place] [address] Care Team Providers Care Hr Administrative Assistant Name Role Phone Shoshana Parker NP Primary Care Provider [phone] Reason for Referral * Consultation (Routine) - Pending Review Specialty Diagnoses / Procedures Referred By Contac t Referred To Contact General Surgery Diagnoses Gallstones and inflammation of gallbladder without obstruction Shoshana Parker NP [address] [facility] [address] [place] [address] Phone: tel: fax: Andreas Mccarthy MD [address] [facility] [id number] [place] [address] Phone: tel: fax: Referral ID Status Reason Start Date Expiration Date Visits Requested Visits Authorized [id number] Pending Review Specialty Services Required 08/20/2026 1 1 Question Answer Please select the performing region: [facility] ([facility]) [[id number]] Please select the performing department: [facility] WCGLS 320A [[id number]] To Provider NOTE: we will do our best to honor your provider preference, but scheduling the patient in a timely manner in our clinic will take precedence. ANDREAS MCCARTHY [[id number]] # of visits: 1 AND CUFF CUTTER Encounter Details Date Type Department Care Team (Late st Contact Info) Description 07/21/2025 Orders Only [facility] Medical Group Primary Care at [address] [phone] Shoshana Parker NP [address] [address] Gallstones and inflammation of gallbladder without obstruction (Primary Dx) Social History Tobacco Use Types Packs/Day Years Used Date Smoking Tobacco: Never Smokeless Tobacco: Never Alcohol Use Standard Drinks/Week Comments Yes 2 [...] on file Legal Sex Female 11:40 PM BAND AND CUFF CUTTER Gender Identity Not on file Sexual Orientation Not on file documented as of this encounter Plan of Treatment Upcoming Encounters Date Type Department Care Team (Late st Contact Info) Description 08/28/2025 10:30 AM BAND AND CUFF CUTTER Hospital Encounter [address] [address] Richy Stevenson MD [address] [address] 08/28/2025 10:30 AM BAND AND CUFF CUTTER Anesthesia Event [address] [address] Leon Lucas CRNA [address] [place] [address] 08/28/2025 10:30 AM BAND AND CUFF CUTTER - 08/28/2025 11:00 AM BAND AND CUFF CUTTER Surgery [address] [address] Richy Stevenson MD [address] [place] [address] COLONOSCOPY Scheduled Procedures Name Priority Associated Diagnoses Date/Ti me COLONOSCOPY Encounter for screening colonoscopy 08/28/2025 10:30 AM BAND AND CUFF CUTTER Scheduled Referrals Name Type Priority Associated Diagnoses Orde r Schedule Ambulatory referral to General Surgery Outpatient Referral Routine Gallstones and inflammation of gallbladder without obstruction Expected: 08/04/2025 (Approximate), Expires: 07/21/2026 documented as of this encounter Visit Diagnoses Diagnosis Encounter for screening colonoscopy- Primary Gallstones and inflammation of gallbladder without obstruction- Primary Calculus of gallbladder with acute cholecystitis, without mention of obstruction Encounter for screening colonoscopy documented in this encounter Care Teams Hr Administrative Assistant Relationship Specialty Start Date End Date Shoshana Parker NP [address] [place] [address] PCP - General Family Medicine 01/15/25 documented as of this encounter
--- OUTSIDE RECORDS SUMMARY | 2025-07-22 04:11 | XMS_ITS | Clinical Summary ---
Author Organization [facility] Address [address] [place] [address] Care Team Providers Care Poultry Offal Icer Name Role Phone Shoshana Parker NP Primary Care Provider [phone] Allergies No known active allergies Medications albuterol [...] 06/10/2025 Assessment & Plan (06/10/2025 9:57 AM ACTUARIAL INTERN): Controlled on propranolol Mild intermittent asthma without complication Assessment & Plan (06/10/2025 9:57 AM ACTUARIAL INTERN): Screening for colon cancer 11/04/2024 Cervicalgia 04/24/2024 [...] 04/24/2024 Assessment & Plan (06/10/2025 9:57 AM ACTUARIAL INTERN): Orders: CBC with auto differential; Future Comprehensive metabolic panel; Future Lipid panel; Future Thyroid Function [place]; Future Assessment & Plan (04/24/2024 10:07 AM [...] 10/23/2023 Assessment & Plan (07/06/2025 1:34 PM ACTUARIAL INTERN): History of. Pain did improve a little [...] work. Assessment & Plan (06/10/2025 9:57 AM ACTUARIAL INTERN): Controlled on propranolol and losartan 25mg daily Orders: CBC with auto differential; Future Comprehensive metabolic panel; Future Lipid panel; Future Thyroid Function [place]; Future Assessment & Plan (04/24/2024 10:05 AM [...] Encounters Date Type Department Care Team Description 07/21/2025 Orders Only [facility] Primary Care at [address] [phone] Shoshana Parker NP Gallstones and inflammation of gallbladder without obstruction (Primary Dx) 07/14/2025 11:45 AM ACTUARIAL INTERN - 07/14/2025 11:59 PM ACTUARIAL INTERN Hospital Encounter [facility] [address] [place] [address] Colicky right upper quadrant pain Discharge Disposition: Discharge to home or self care 07/14/2025 Results Follow-Up [facility] Primary Care at [address] [phone] Shoshana Parker NP [facility] 07/07/2025 Orders Only [facility] Gastroenterology at [address] [place] [phone] Richy Stevenson MD Gastroesophageal reflux disease, unspecified whether esophagitis present (Primary Dx); Colicky right upper quadrant pain 07/07/2025 Orders Only [facility] Gastroenterology at [address] [place] [phone] Richy Stevenson MD 07/06/2025 12:30 PM ACTUARIAL INTERN Office Visit [facility] Primary Care at [address] [phone] Shoshana Parker NP Gastroesophageal reflux disease without esophagitis (Primary Dx); Colicky right upper quadrant pain 07/06/2025 Nurse Triage [facility] Primary Care at [address] [phone] Shoshana Parker NP 06/18/2025 Orders Only [facility] Gastroenterology at [address] [place] [phone] Richy Stevenson MD Nausea and vomiting, unspecified vomiting type (Primary Dx); Encounter for screening colonoscopy 06/17/2025 Telephone [facility] Minimally Invasive Surgery [facility] 7th Floor [address] [place] [address] Rupa Woodson, [facility]LY [facility], 1928–1983 New Referral 06/11/2025 Results Follow-Up [facility] Sleep Medicine at [address] [place] [phone] Shoshana Parker NP CBC with auto differential, Comprehensive metabolic panel, Lipid panel, Additional followed-up results: 7 06/10/2025 9:15 AM ACTUARIAL INTERN Lab [address] [address] Annual physical exam; HTN (hypertension), benign; Lipid screening; Need for hepatitis B screening test; Need for hepatitis C screening test 06/10/2025 8:30 AM ACTUARIAL INTERN Office Visit [facility] Primary Care at [address] [phone] Shoshana Parker NP Encounter for [...] Monovalent Vaccination (12+ Yrs) PURPLE 10/07/2020,09/16/2020 Tdap 06/10/2025, 5(Deferred: Patient Refused) Surgical History Surgery Date Site/Laterality [...] on file Legal Sex Female 11:40 PM ACTUARIAL INTERN Gender Identity Not on file Sexual Orientation Not on file Obstetrics History Para Term AB IAB SAB Ectopic Multiple Livin g Live Births 0 0 0 0 0 0 0 0 0 0 0 Last Filed Vital Signs Vital Sign Reading Time Taken Comments Blood Pressure 134/88 07/06/2025 12:41 PM ACTUARIAL INTERN Pulse 73 07/06/2025 12:41 PM ACTUARIAL INTERN Temperature 36.5 C (97.7 F) 07/06/2025 12:41 PM ACTUARIAL INTERN Respiratory Rate 16 07/06/2025 12:41 PM ACTUARIAL INTERN Oxygen Saturation 98% 07/06/2025 12:41 PM ACTUARIAL INTERN Inhaled Oxygen Concentration - - Weight 76.3 kg (168 lb 3.2 oz) 07/06/2025 12:41 PM ACTUARIAL INTERN Height 177.8 cm (5' 10) 07/06/2025 12:41 PM ACTUARIAL INTERN Body Mass Index 24.13 07/06/2025 12:41 PM ACTUARIAL INTERN Plan of Treatment Upcoming Encounters Date Type Department Care Team (Late st Contact Info) Description 08/28/2025 10:30 AM ACTUARIAL INTERN Hospital Encounter [address] [phone] Richy Stevenson MD [address] [place] [address] [address] [place] [address] 08/28/2025 10:30 AM ACTUARIAL INTERN Anesthesia Event [address] [address] Leon Lucas CRNA [address] [place] [address] 08/28/2025 10:30 AM ACTUARIAL INTERN - 08/28/2025 11:00 AM ACTUARIAL INTERN Surgery [address] [address] Richy Stevenson MD [address] [place] [address] COLONOSCOPY Scheduled Procedures Name Priority Associated Diagnoses Date/Ti me COLONOSCOPY Encounter for screening colonoscopy 08/28/2025 10:30 AM ACTUARIAL INTERN Health Maintenance Due Date Last Done Comments [...] Read Routine (OP Routine) 07/14/2025 12:10 PM ACTUARIAL INTERN Colicky right upper quadrant pain EGFR Routine 06/10/2025 9:22 AM ACTUARIAL INTERN Annual physical exam HTN (hypertension), benign DIFFERENTIAL AUTO Routine 06/10/2025 9:2 2 AM ACTUARIAL INTERN Annual physical exam HTN (hypertension), benign THYROID FUNCTION CASCADE Routine 06/10/2025 9:22 AM ACTUARIAL INTERN Annual physical exam HTN (hypertension), benign LIPID PANEL Routine 06/10/2025 9:22 AM ACTUARIAL INTERN Annual physical exam HTN (hypertension), benign Lipid screening COMPREHENSIVE METABOLIC PANEL Routine 06/10/2025 9:22 AM ACTUARIAL INTERN Annual physical exam HTN (hypertension), benign CBC WITH AUTO DIFFERENTIAL Routine 06/10/2025 9:22 AM ACTUARIAL INTERN Annual physical exam HTN (hypertension), benign HEPATITIS C ANTIBODY Routine 06/10/2025 9:22 AM ACTUARIAL INTERN Need for hepatitis C screening test HEPATITIS B SURFACE ANTIBODY (IMMUNE STATUS) Routine 06/10/2025 9:22 AM ACTUARIAL INTERN Need for hepatitis B screening test HEPATITIS B CORE ANTIBODY, TOTAL Routine 06/10/2025 9:22 AM ACTUARIAL INTERN Need for hepatitis B screening test HEPATITIS B SURFACE ANTIGEN Routine 06/10/2025 9:22 AM ACTUARIAL INTERN Need for hepatitis B screening test SCREENING MAMMOGRAM BILATERAL W BENNY Schedule Routine, Read Routine (OP Routine) 12/06/2021 3:51 PM CDT Screening mammogram, encounter for from Last 3 Months or Most Recently Relevant to Health Maintenance Results * US RUQ (07/14/2025 12:10 PM ACTUARIAL INTERN) Anatomical Region Laterality Modality Abdomen N/A Ultrasound 07/14/2025 1:27 PM ACTUARIAL INTERN Impressions 07/14/2025 1:27 PM ACTUARIAL INTERN 1. Cholelithiasis. The gallbladder is contracted the time of this examination. 2. Otherwise negative right upper quadrant sonogram. Electronically signed by: Salvatore Diaz M.D. Narrative 07/14/2025 1:27 PM ACTUARIAL INTERN EXAM: US RUQ CLINICAL HISTORY: Abdominal pain. [...] Resul t * eGFR (06/10/2025 9:22 AM ACTUARIAL INTERN) eGFR >90 >=60 mL/min/1. 73 m2 Comment: [...] last reviewed 2021. Blood 06/10/2025 9:22 AM ACTUARIAL INTERN 06/10/2025 10:41 AM ACTUARIAL INTERN us Shoshana Parker NP LAB BLOOD ORDERABLES Final Re sult [facility] [address] [facility] Department [place] [address] * Differential, auto (06/10/2025 9:22 AM ACTUARIAL INTERN) Neutrophil abs 4.36 1.50 - 6.50 K/cumm Imm gran abs 0.01 0.00 - 0.10 K/cumm [facility] Lymphocyte abs 2.27 0.80 - 3.30 K/cumm [facility] Monocyte abs 0.63 0.20 - 0.80 K/cumm [facility] Eosinophil abs 0.05 0.00 - 0.50 K/cumm [facility] Basophil abs 0.02 0.00 - 0.10 K/cumm [facility] Neutrophil pct 59.4 % [facility] Comment: Interpretive Data Percent cell count reference ranges are not reported, since discordance with absolute values may lead to misinterpretation of CBC data. Current Interpretive Data was last revised on 2017. Imm gran pct 0.1 % [facility] Comment: Interpretive Data Percent cell count reference ranges are not reported, since discordance with absolute values may lead to misinterpretation of CBC data. Current Interpretive Data was last revised on 2017. Lymphocyte pct 30.9 % [facility] Comment: Interpretive Data Percent cell count reference ranges are not reported, since discordance with absolute values may lead to misinterpretation of CBC data. Current Interpretive Data was last revised on 2017. Monocyte pct 8.6 % [facility] Comment: Interpretive Data Percent cell count reference ranges are not reported, since discordance with absolute values may lead to misinterpretation of CBC data. Current Interpretive Data was last revised on 2017. Eosinophil pct 0.7 % [facility] Comment: Interpretive Data Percent cell count reference ranges are not reported, since discordance with absolute values may lead to misinterpretation of CBC data. Current Interpretive Data was last revised on 2017. Basophil pct 0.3 % [facility] Comment: Interpretive Data Percent cell count reference ranges are not reported, since discordance with absolute values may lead to misinterpretation of CBC data. Current Interpretive Data was last revised on 2017. Blood 06/10/2025 9:22 AM ACTUARIAL INTERN 06/10/2025 10:43 AM ACTUARIAL INTERN Shoshana Parker NP LAB BLOOD ORDERABLES Final Re sult Performing Organization Address [facility] Co de Phone Number [address] [place] [address] * Thyroid Function [place] (06/10/2025 9:22 AM ACTUARIAL INTERN) [facility] TSH 2.05 0.30 - 4.20 mcIUnit/mL Blood 06/10/2025 9:22 AM ACTUARIAL INTERN 06/10/2025 10:41 AM ACTUARIAL INTERN Shoshana Parker NP LAB BLOOD ORDERABLES Final Re sult Performing Organization Address [facility] Co de Phone Number [address] [address] * CBC with auto differential (06/10/2025 9:22 AM ACTUARIAL INTERN) [facility] WBC 7.34 3.80 - 9.90 K/cumm Hgb 12.2 11.9 - 15.5 g/dL [facility] Hct 37.5 35.6 - 45.5 % [facility] Plt 284 150 - 400 K/cumm [facility] MPV 10.2 9.1 - 12.3 fL [facility] RBC 4.46 3.90 - 5.20 M/cumm [facility] MCV 84.1 81.3 - 96.4 fL [facility] MCH 27.4 27.1 - 33.3 pg [facility] MCHC 32.5 32.3 - 35.7 g/dL [facility] RDW CV 13.6 11.1 - 14.9 % [facility] RDW SD 41.8 35.7 - 48.1 fL [facility] NRBC abs 0.00 0.00 - 0.01 K/cumm [facility] Blood 06/10/2025 9:22 AM ACTUARIAL INTERN 06/10/2025 10:43 AM ACTUARIAL INTERN Shoshana Parker NP LAB BLOOD ORDERABLES Final Re sult Performing Organization Address [facility] Co de Phone Number [address] [employer] [place] [place] [address] * Hepatitis C antibody Blood (06/10/2025 9:22 AM ACTUARIAL INTERN) Hep C Ab Nonreactive Nonreactive Comment: Antibodies [...] revised on 2019. Blood 06/10/2025 9:22 AM ACTUARIAL INTERN 06/10/2025 10:41 AM ACTUARIAL INTERN Shoshana Parker NP LAB MICROBIOLOGY - GENERAL OR DERABLES Final Result Performing Organization Address [facility]/ZIP Co de Phone Number [address] [employer] [place] [address] * Hepatitis B core antibody, total Blood (06/10/2025 9:22 AM ACTUARIAL INTERN) Hep B core IgG/IgM Nonreactive Nonreactive Comment:Testing performed by : [facility], [address] [place]., [address] Blood 06/10/2025 9:22 AM ACTUARIAL INTERN 06/10/2025 5:40 PM ACTUARIAL INTERN Shoshana Parker NP LAB MICROBIOLOGY - GENERAL OR DERABLES Final Result Performing Organization Address [facility] de Phone Number [address] [employer] [place] [address] * Hepatitis B surface antibody (immune status) Blood (06/10/2025 9:22 AM ACTUARIAL INTERN) Pathologist [facility] HBsAb (immune status) Nonreactive Comment: Interpretive Data [...] revised on 19. Blood 06/10/2025 9:22 AM ACTUARIAL INTERN 06/10/2025 10:41 AM ACTUARIAL INTERN us Shoshana Parker NP LAB MICROBIOLOGY - GENERAL OR DERABLES Final Result Performing Organization Address [facility] Co de Phone Number [address] [employer] [place] [address] * Hepatitis B Surface Antigen Blood (06/10/2025 9:22 AM ACTUARIAL INTERN) Pathologist [facility] HepBsAg Nonreactive Nonreactive Blood 06/10/2025 9:22 AM ACTUARIAL INTERN 06/10/2025 10:41 AM ACTUARIAL INTERN Shoshana Parker NP LAB MICROBIOLOGY - GENERAL OR DERABLES Final Result [facility] [address] [facility] Department [place] [address] * Lipid panel (06/10/2025 9:22 AM ACTUARIAL INTERN) Cholesterol 163 30 - 199 mg/dL Comment: [...] ratio 2 [facility] Blood 06/10/2025 9:22 AM ACTUARIAL INTERN 06/10/2025 10:41 AM ACTUARIAL INTERN us Shoshana Parker NP LAB BLOOD ORDERABLES Final Re sult [facility] [address] [facility] Department [place] [address] * Comprehensive metabolic panel (06/10/2025 9:22 AM ACTUARIAL INTERN) Sodium 136 135 - 145 mmol/L Potassium, pl 4.4 3.3 - 4.9 mmol/L [facility] Chloride 104 97 - 110 mmol/L [facility] CO2 22 22 - 32 mmol/L [facility] Anion gap 10 2 - 15 mmol/L [facility] BUN 9 6 - 25 mg/dL [facility] Creatinine 0.76 0.60 - 1.10 mg/dL [facility] Glucose 93 70 - 199 mg/dL [facility] Comment: Interpretive Data Fasting glucose >/= 126 [...] 2022. Calcium 9.3 8.5 - 10.3 mg/dL [facility] Bilirubin, total 0.4 0.1 - 1.2 mg/dL [facility] Protein, pl 6.9 6.5 - 8.5 g/dL [facility] Albumin 4.3 3.5 - 5.0 g/dL [facility] Alk phos 56 40 - 130 Units/L [facility] ALT 9 7 - 45 Units/L [facility] AST 16 10 - 45 Units/L [facility] Blood 06/10/2025 9:22 AM ACTUARIAL INTERN 06/10/2025 10:41 AM ACTUARIAL INTERN us Shoshana Parker NP LAB BLOOD ORDERABLES Final Re sult [facility] [address] [facility] Department [place] [address] * (ABNORMAL) Screening Mammogram Bilateral [...] Recently Relevant to Health Maintenance Insurance [employer] HMO/POS [email or web address] HMO/POS * Guarantor: [facility] Account Type Relation to Patient Date of Phone Billing Address Donor Other Care Teams Poultry Offal Icer Relationship Specialty Start Date End Date Shoshana Parker NP [address] [place] [address] PCP - General Family Medicine 01/15/25
--- NOTE | 2025-07-22 11:57 | ECG_ITS ---
Test Date: 2025-07-22 12:54:33 Measurements Intervals Silas Rate: 65 P: 43 NE: 166 QRS: 33 QRSD: 89 T: 32 QT: 395 QTc: 413 Interpretive Statements SINUS RHYTHM BASELINE ARTIFACT- I, II, AVR NORMAL ECG No previous ECG available for comparison Electronically Signed On 07-22-2025 13:20:00 INSTRUMENT MAN by Kwabena Griffith D.O.
[2025-07-22] MEDS: KETOROLAC 15 MG/ML VIAL (*BKC) IV PUSH ×2 (12:21→14:39)
[2025-07-22] MEDS: ACETAMINOPHEN 500 MG TABLET 1000 MG PO (12:21)
[2025-07-22 12:44] LABS: Amylase 67 U/L (30-110)
--- NOTE | 2025-07-22 12:52 | WPDHPUPDATE1 ---
History and Physical Update Update Date/Time: 07/22/25 12:52 History and Physical has been reviewed, including an updated exam of the patient. There are NO changes in the patient's condition. Risks, benefits, and alternatives have been discussed and questions answered. Patient agrees to proceed with procedure.
--- NOTE | 2025-07-22 13:52 | P.PNAN_ITS ---
Anes - Initial Pre Proc Eval Procedure: Operation Date: 07/22/25 13:30 Proposed Procedures p Laparoscopic Cholecystectomy - Lester Lozano DO Date/Time: 07/22/25 13:52 Surgeon: Lester Lozano DO Pre Op Diagnosis: Sym Chlolelthiasis Patient Data Age: 49 Gender: F Height: 1.78 m Weight: 75.1 kg Last Vital Signs Temp 97.8 F 07/22/25 12:53 Pulse 69 07/22/25 12:53 Resp 16 07/22/25 12:53 BP 141/73 H 07/22/25 12:53 Pulse Ox 100 07/22/25 12:53 O2 Del Method Room Air 07/22/25 12:53 Allergies Allergy/AdvReac Type Severity Reaction Status Date / Time morphine AdvReac Intermediate Rash, Neck Verified 07/22/25 12:52 tightness, Urinary retention Home Medications ?Medication ?Instructions ?Recorded ?Confirmed ?Type losartan 25 mg tablet 25 mg PO DAILY 07/18/2507/06 History propranolol 10 mg tablet 10 mg PO Q12H 07/18/2507/22 History hydrocodone 5 mg-acetaminophen 325 1 tablet PO Q4H PRN pain #10 tabs 07/19/25 07/21/25 Rx mg tablet Laboratory Tests 07/22/25 12:04 Amylase 67 U/L (30-110) Patient hx anesthesia problems: none Family hx anesthesia problems: none Results Review: All pre-operative results and documents have been reviewed as part of the pre- operative evaluation. [facility] Past Medical History Medical History Hypertension, essential Surgical History Surgical History History of tonsillectomy and adenoidectomy History of appendectomy Family History Family History Father Cancer Hypertension CHF (congestive heart failure) Sibling Cancer Mother Hypertension Afib Social History Social History Smoking status: Never smoker Alcohol intake: current Drinks per week: 5 Substance use: current Substance use type: marijuana Other substance usage details: edibles monthly Last use: 07/17/25 Lack of Transportation: No Lack of Food: Never True Current Housing: I Have Housing Concerned About Future Housing: No Difficulty Paying Gas/Electric Bills: No Difficulty Paying for Meds: No Currently Unemployed: No Education: Don't Know Difficulty w/ Childcare or Family Care: No Living arrangements: with family Spiritual care concerns: No Anes - Eval Final PreProcedure Day of Procedure 07/22/25 13:52 Patient weight: normal Lungs: normal air movement Airway: Mallampati scale class II Neurological: alert and oriented Last oral intake: >/= 8 hours ASA classification: II Emergent: no Anesthetic plan: proceed Anesthesia type and monitoring: general ETT and standard monitoring Results Review: All pre-operative results and documents have been reviewed as part of the pre- operative evaluation. HTN, on 2 meds, active, walks 1-2 fos, cares for her 4 yo, no cp or sob. Informed Consent: The patient's anesthetic plan and its attendant risks and benefits were discussed with the patient/family/POA. Questions were solicited and answers provided to the satisfaction of the patient/family/POA.
[2025-07-22] MEDS: ceFAZolin 2 GM in SODIUM CHLORIDE 0.9% IV 50 ML 100 ML IVPB (13:59)
[2025-07-22 14:01] LABS: BEDSIDEPREGUCG Negative (Negative)
--- NOTE | 2025-07-22 14:26 | S_PTH ---
PATIENT: Jyotsna Sinha [facility] U#:[id number] AGE/SX: 49/F ROOM: RE07/22/[address]: Lester Lozano DO : 1975 BED: DIS: 07/22/2025 SPEC #: [id number] RECD: 07/22/25 15:01 STATUS: CARLOS RERaj #: [id number] [place]: 07/22/25 14:[address]: Lester Lozano DEPT: [facility] Surgical RECD BY: Laura Jenkins ENTERED: 07/22/25 15:01 SP TYPE: Surgical OTHR DR: Shoshana Parker, [employer] Tissues: A - Gallbladder Procedures: Hematoxylin and Eosin Stain Gross and Microscopic Level 3
[2025-07-22] MEDS: BUPIVACAINE/EPINEPHRINE 0.5% 30 ML VIAL INFILTRATE (14:31)
--- NOTE | 2025-07-22 14:50 | P.OP_ITS ---
Procedure Note - Detailed Date of Procedure 07/22/25 Pre-op Diagnosis Symptomatic cholelithiasis Post-op Diagnosis Same Procedure Performed Laparoscopic cholecystectomy Surgeon Lester Lozano, DO Anesthesia General and Local (0.5% bupivacaine) Indications This is a 49-year-old woman who presented with intermittent right upper quadrant pain over the past 6 months. She was recently in the emergency department last weekend and had to be placed in observation for pain control as her pain still was not improving in the ED. her workup showed evidence of cholelithiasis with normal white blood count and normal liver enzymes. She was feeling better over the weekend and was able to be discharged home with prescription for pain meds for breakthrough pain. She was counseled on a low-fat diet and further discussions were made with the patient and decision was made to proceed with laparoscopic cholecystectomy, possible open. Findings Laparoscopic cholecystectomy was performed. The gallbladder had a few pericholecystic adhesions and the cystic duct appeared to have a gallstone within it. The gallbladder wall appeared normal and the cystic duct was normal in size just beyond the area where the gallstone was lodged. The gallbladder was removed and sent to the lab for pathology. No other intra-abdominal abnormalities were noted. Description of Procedure Procedure as well as risks, benefits, and alternatives were discussed with patient. Written consent was obtained and placed in chart prior to procedure. The patient was brought back to surgical suite. Patient was placed in supine position on operating table. Time-out was done to confirm patient and procedure. Patient was then intubated by the anesthesia department. Abdomen was prepped and draped in sterile fashion using chlorhexidine prep. 0.5% bupivacaine with epinephrine was infiltrated at each site of incision. A 5 millimeter incision was made near the umbilicus, and a 5 millimeter Optiview trocar was advanced through the abdominal layers under direct visualization. Once inside the abdominal cavity, carbon dioxide was insufflated to create a pneumoperitoneum. The camera was inserted and the abdomen was inspected. No immediate abnormalities were identified. The patient was placed in reverse Trendelenburg position and rotated slightly to the left. An 11 millimeter incision was made in the subxiphoid region, and an 11 millimeter trocar was inserted under direct visualization. Two 5 millimeter incisions were made in the right upper quadrant, and two 5 millimeter trocars were inserted under direct visualization. The gallbladder was identified and grasped at the fundus and retracted superiorly. It was then grasped at the infundibulum retracted laterally. Careful dissection around the neck of the gallbladder was performed using blunt dissection with a [place] grasper and hook electrocautery. The cystic duct was identified, and a window was created behind it. The cystic artery was also identified and a window was created behind it. The critical view of safety was identified, visualizing the cystic duct running directly into the neck of the gallbladder, and the cystic artery running directly into the wall of the gallbladder. A 5 millimeter clip business services coordinator was then used to place 2 clips proximally and 1 clip distally on both the cystic duct and cystic artery. They were then both transected using endoscopic scissors. Once safely away from the kevin hepatitis, the gallbladder was dissected free from the liver bed using hook electrocautery. Hemostasis was achieved along the way. The gallbladder was removed completely and then removed through the subxiphoid port. The liver bed was then inspected. Hemostasis appeared adequate, and our clips appeared secure. The area was gently irrigated with sterile saline. No other abnormalities were seen. The patient was flattened out in bed, and 1 final inspection was made around the abdominal cavity. The subxiphoid port was removed, and a [place] cone was used to approximate the fascia with an 0-Vicryl simple interrupted suture. The remaining ports were then removed under direct visualization, the camera was removed, and the pneumoperitoneum was released. The skin of the incisions was approximated using 4-0 Monocryl subcuticular sutures. Exofin glue was applied on top. The patient was then awakened from anesthesia, extubated, and transferred to recovery. Estimated Blood Loss 5 Pathology Yes (Gallbladder) Complications No immediate complications Condition Stable Disposition Same day [facility] Billing Surgery - Charge Forward: Surgery Billing
[2025-07-22] MEDS: LACTATED RINGERS 1,000 ML 30 ML IV CONT ×2 (14:53)
[2025-07-22] MEDS: fentaNYL CITRATE INJ (*CRX) 100 MCG/2 ML VIAL 25 MCG IV PUSH ×4 (15:37→15:51)
[2025-07-22] MEDS: oxyCODONE HCL (*CRX) 5 MG TAB IR PO (16:39)
== END 2025-07-22 17:15 | disposition home or self-care (01) ==
PROVIDERS: Anesthesiology; PCP Nurse Practitioner Family; Visit Provider Surgery
PROC: 0FT44ZZ Resection of Gallbladder, Percutaneous Endoscopic Approach (ICD-10-PCS; CPT 47562; principal; 2025-07-22 13:30)
DX: K80.10 Calculus of gallbladder with chronic cholecystitis without obstruction (principal); K82.8 Other specified diseases of gallbladder; I10 Essential (primary) hypertension; F12.90 Cannabis use, unspecified, uncomplicated; Z79.891 Long term (current) use of opiate analgesic; Z98.890 Other specified postprocedural states; Z80.9 Family history of malignant neoplasm, unspecified; Z82.49 Family history of ischemic heart disease and other diseases of the circulatory system
CPT/HCPCS: 47562; 36415; 82150; 88304; 93005; J0690; A9270; J1100; J1171; J1596; J1885; J2003; J2250; J2405; J2704; J3010; J7030; J7120